=== PATIENT | male | born 1955 | race Caucasian/White ===

== ENCOUNTER 2016-11-21 21:51 | Inpatient (IN) | payer BC, OTHER ==
[~2016-11-21] VITALS: Ht 177.8 cm; Wt 81.7 kg
[~2016-11-21 21:51] MED LIST: DEPO-TESTOSTERONE TOP; MULTTAB58 PO; SILD100T PO; SULF500T36 PO
[2016-11-21] MEDS ORDERED: SODIUM CHLORIDE 0.9% 1000ML 2,000 ML IV STA (22:25)
[2016-11-21] MEDS ORDERED: VANCOMYCIN INJ 1,400 MG in SODIUM CHLORIDE 0.9% 250ML 250 ML IV STA (22:29)
[2016-11-21] MEDS ORDERED: VANCOMYCIN INJ 1,400 MG in SODIUM CHLORIDE 0.9% 500ML 500 ML IV STA (22:29)
[2016-11-21] MEDS ORDERED: CEFEPIME IV 1,000 MG in DEXTROSE 5% 100ML 100 ML IV ONE (22:30)
[2016-11-21] MEDS ORDERED: ACETAMINOPHEN 650 MG SUPP PR STA (22:41)
[2016-11-21] MEDS ORDERED: CHOL1000 PO (22:44)
[2016-11-21] MEDS ORDERED: MULT-618 PO (22:44)
[2016-11-21] MEDS ORDERED: NUTR-7 PO (22:44)
[2016-11-21] MEDS ORDERED: OMEP40CA PO (22:44)
[2016-11-21 22:49] LABS: BASO % 0.2 %; BASO ABS # 0.03 K/uL (0-0.2); COMPLETE YES; EOS % 0.5 %; HEMATOCRIT 53.9 % (42-52); IG% 0.3 %; LYMPH ABS # 3.72 K/uL (1.2-3.4); MEAN CELL VOLUME 91.4 fL (80-100); MEAN CORPUSCULAR HEMOGLOBIN 32.9 pg (25-34); MEAN PLATELET VOLUME 12.2 fL (7.4-10.4); MONO % 15.5 %; NEUT % 56.5 %; PLATELET COUNT 234 K/uL (130-400); WHITE BLOOD COUNT 13.77 K/uL (4.8-10.8)
[2016-11-21 22:56] LABS: BUN/CREATININE RATIO 13.3 (10-20); CALCIUM 10.8 mg/dl (8.5-10.1); CREATININE 3.2 mg/dl (0.60-1.40); MAGNESIUM 1.8 mg/dl (1.8-2.4); POTASSIUM 4.1 mmol/L (3.5-5.1)
--- NOTE | 2016-11-21 22:56 | DIAGNOSTIC IMAGING REPORT ---
SINGLE VIEW CHEST CLINICAL HISTORY: Fever. FINDINGS: An AP, portable, upright chest radiograph is compared to study dated 12/25/12. The examination is degraded by portable technique and patient rotation. The cardiomediastinal silhouette is unremarkable. After carotid calcification is noted in the thoracic aorta. Chronic interstitial thickening is noted. There are streaky bibasilar airspace opacities. No large pleural effusion or pneumothorax is seen. The skeletal structures are osteopenic. The bony thorax is grossly intact. Surgical anchors are present in the right humeral head. IMPRESSION: There are streaky bibasilar airspace opacities. This could represent atelectasis and/or an infectious or inflammatory pneumonitis. Clinical correlation will be required. Electronically signed by: Rashi Sutton M.D. 11/21/2016 10:54 PM Dictated Date/Time: 11/21/2016 10:52 PM
[2016-11-21 22:59] LABS: ACETAMINOPHEN < 2 ug/ml (10-30)
[2016-11-21 23:00] LABS: INR 1.3 (0.9-1.1)
[2016-11-21 23:02] LABS: CKMB/CK RATIO 0.8 (0-3.0)
[2016-11-21] MEDS ORDERED: SODIUM CHLORIDE 0.9% 1000ML 1,000 ML IV STA (23:03)
[2016-11-21 23:06] LABS: ISTAT CREATININE 3.1 mg/dl (0.6-1.3); ISTAT HEMOGLOBIN 19.7 g/dl (14.0-18.0); ISTAT IONIZED CALCIUM 1.21 mmol/l (1.12-1.32)
[2016-11-21 23:24] LABS: MANUAL MICROSCOPIC REQUIRED? YES; REVIEW REQ? NO; URINE APPEARANCE CLOUDY (CLEAR); URINE COLOR YELLOW; URINE NITRITE POS (NEG); URINE SPECIFIC GRAVITY >= 1.030 (1.000-1.030); UROBILINOGEN NEG (NEG)
[2016-11-21 23:26] LABS: VEN BLD GAS O2 SATURATION < 60.0 %; VENOUS BLOOD GAS PCO2 53 mmHg (38.0-50.0); VENOUS BLOOD GAS PO2 18 mmHg
[2016-11-21 23:38] LABS: URINE BILIRUBIN NEG (NEG)
[2016-11-21 23:40] LABS: URINE AMORPHOUS SEDIMENT PRESENT (NONE PRSENT); URINE BACTERIA 3+ (NEG); ZZUR CULT IF INDIC CLEAN CATCH YES
[2016-11-22] VITALS (16 sets, daily range): BP systolic 91–140; BP diastolic 55–74; PULSE 74–108; TEMP 36.5–36.8; O2SAT 94–98; Ht 177.8 cm; Wt 81.7 kg
[2016-11-22] MEDS ORDERED: HYDROCORTISONE SOD SUCCINATE 100 MG/2 ML VIAL IV STA (00:32)
[2016-11-22] MEDS ORDERED: ACETAMINOPHEN 325 MG TAB PO PRN (00:45)
[2016-11-22] MEDS ORDERED: MoRPHine SULFATE 2 MG/ML CARP IV PRN (00:45)
[2016-11-22] MEDS ORDERED: LORAZEPAM 0.5 MG TAB PO PRN (00:45)
--- NOTE | 2016-11-22 00:59 | History and Physical ---
History & Physical Date & Time of Service: Nov 22, 2016 at 00:58 Chief Complaint: Altered Mental Status Primary Care Physician: No Doctor, Assigned History of Present Illness Source: patient 61 y/o M w/Hx esophageal ulcers and possible history of IBD. The pts states that he was asleep on the couch since around 7am and when the family finally tried to wake him, he was lethargic, confused and difficult to arouse. The pt was recently started on a daily PPi for what the family states are esophageal ulcers. He was also started on a low dose of prednisone although it is not known why. He was unable to take either med today. He arrived at the hospital poorly responsive and hypotensive. He had a marginal response to aggressive fluid resuscitation. Initial labs are notable for ARF, leukocytosis and a (+) UA. The pt had a high temp on arrival to the ER. On review of previous records, it appears that in 2012 he presented to the hospital with AMS and hypotension and received a diagnosis of dehydration and adrenal insufficiency, This was thought to be due to abrupt discontinuation of prednisone which he was taking for a GI issue. The pt is not able to contribute to the HPI due to AMS. Past Medical/Surgical History Medical Problems: (1) Benign hypertension Status: Chronic (2) GI bleed Status: Resolved Surgical Problems: (1) H/O heart artery stent Status: Resolved (2) S/P shoulder surgery Status: Resolved Family History Diabetes mellitus FH: heart disease Hypertension Social History Smoking Status: Never Smoker Marital Status: Immunizations History of Influenza Vaccine: No History of Tetanus Vaccine?: No History of Pneumococcal: No History of Hepatitis B Vaccine: No Allergies Coded Allergies: Penicillins (Verified Allergy, Unknown, required hospitalization d/t reaction in childhood, 09/03/14) Home Medications Scheduled Cholecalciferol (Vitamin D3), 1 TAB PO DAILY Multiple Vitamins W/ Minerals (Centrum Silver Ultra Mens), 1 TAB PO DAILY Nutritional Supplements (Boost), 3-4 CAN PO DAILY Omeprazole (Prilosec), 40 MG PO DAILY Review of Systems Cannot obtain - family only reports he was sleeping the whole day Physical Exam Vital Signs Date Time Temp Pulse Resp B/P Pulse Ox O2 Delivery O2 Flow Rate FiO2 11/21/16 23:32 131 20 116/96 96 Nasal Cannula 11/21/16 23:10 136 26 106/52 98 Nasal Cannula 2.0 11/21/16 22:37 38.9 11/21/16 22:17 136 11/21/16 22:08 36.7 139 30 83/53 94 Room Air 11/21/16 22:00 94 Room Air General Appearance: + pertinent finding (Thin , confused, elderly male - no distress) Head: normocephalic, atraumatic Eyes: normal inspection ENT: normal ENT inspection, hearing grossly normal, TMs normal, pharynx normal Neck: supple, no JVD Respiratory/Chest: chest non-tender, lungs clear, normal breath sounds, no respiratory distress, no accessory muscle use, + pertinent finding (Poor effort) Cardiovascular: regular rate, rhythm, no edema, no gallop, no JVD Abdomen/GI: normal bowel sounds, non tender, soft Back: normal inspection, no CVA tenderness Extremities/Musculoskelatal: normal inspection, no calf tenderness, normal capillary refill, no pedal edema, normal range of motion Neurologic/Psych: railroader II-XII nml as tested, no motor/sensory deficits, alert, normal mood/affect, normal reflexes, oriented x 3 Skin: normal color, warm/dry, no rash Diagnostics Laboratory Results Results Past 24 Hours Test 11/21/16 21:11 11/21/16 22:50 11/21/16 22:52 Range/Units White Blood Count 13.77 4.8-10.8 K/uL Red Blood Count 5.90 4.7-6.1 M/uL Hemoglobin 19.4 14.0-18.0 g/dL Hematocrit 53.9 42-52 % Mean Corpuscular Volume 91.4 80-100 fL Mean Corpuscular Hemoglobin 32.9 25-34 pg Mean Corpuscular Hemoglobin Concent 36.0 32-36 g/dl Platelet Count 234 130-400 K/uL Mean Platelet Volume 12.2 7.4-10.4 fL Neutrophils (%) (Auto) 56.5 % Lymphocytes (%) (Auto) 27.0 % Monocytes (%) (Auto) 15.5 % Eosinophils (%) (Auto) 0.5 % Basophils (%) (Auto) 0.2 % Neutrophils # (Auto) 7.78 1.4-6.5 K/uL Lymphocytes # (Auto) 3.72 1.2-3.4 K/uL Monocytes # (Auto) 2.13 0.11-0.59 K/uL Eosinophils # (Auto) 0.07 0-0.5 K/uL Basophils # (Auto) 0.03 0-0.2 K/uL RDW Standard Deviation 42.3 36.4-46.3 fL RDW Coefficient of Variation 12.7 11.5-14.5 % Immature Granulocyte % (Auto) 0.3 % Immature Granulocyte # (Auto) 0.04 0.00-0.02 K/uL Prothrombin Time 14.0 9.0-12.0 SECONDS Prothromb Time International Ratio 1.3 0.9-1.1 Urine Color YELLOW Urine Appearance CLOUDY CLEAR Urine pH 5.0 4.5-7.5 Urine Specific [place] >= 1.030 1.000-1.030 Urine Protein 2+ NEG Urine Glucose (UA) TRACE NEG Urine Ketones TRACE NEG Urine Occult Blood 2+ NEG Urine Nitrite POS NEG Urine Bilirubin NEG NEG Urine Urobilinogen NEG NEG Urine Leukocyte Esterase NEG NEG Urine RBC 10-30 0-4 /hpf Urine WBC 1-5 0-5 /hpf Urine Epithelial Cells 0-5 0-5 /lpf Urine Amorphous Sediment PRESENT NONE PRSENT Urine Bacteria 3+ NEG Sodium Level 139 136-145 mmol/L Potassium Level 4.1 3.5-5.1 mmol/L Chloride Level 104 98-107 mmol/L Carbon Dioxide Level 19 21-32 mmol/L Anion Gap 16.0 20.0 16-25 mmol/L Blood Urea Nitrogen 43 7-18 mg/dl Creatinine 3.20 0.60-1.40 mg/dl Est Creatinine Clear Calc Drug Dose 23.3 ml/min Estimated GFR () 22.8 Estimated GFR (Non- 19.7 BUN/Creatinine Ratio 13.3 10-20 Random Glucose 135 70-99 mg/dl Calcium Level 10.8 8.5-10.1 mg/dl Magnesium Level 1.8 1.8-2.4 mg/dl Total Bilirubin 1.1 0.2-1 mg/dl Direct Bilirubin 0.5 0-0.2 mg/dl Aspartate Amino Transf (AST/SGOT) 44 15-37 U/L Alanine Aminotransferase (ALT/SGPT) 27 12-78 U/L Alkaline Phosphatase 81 45-117 U/L Total Creatine Kinase 306 39-308 U/L Creatine Kinase MB 2.6 0.5-3.6 ng/ml Creatine Kinase MB Ratio 0.8 0-3.0 Troponin I 0.030 0-0.045 ng/ml Total Protein 8.1 6.4-8.2 gm/dl Albumin 3.7 3.4-5.0 gm/dl Salicylates Level < 1.7 2.8-20 mg/dl Acetaminophen Level < 2 10-30 ug/ml Bedside Hemoglobin 19.7 14.0-18.0 g/dl Bedside Hematocrit 58 42-52 % Bedside Sodium 141 135-144 mEq/L Bedside Potassium 4.4 3.3-5.0 mEq/L Bedside Chloride 106 101-112 mEq/L Bedside Total CO2 20 24-31 mEq/l Bedside Blood Urea Nitrogen 44 7-18 mg/dl Bedside Creatinine 3.1 0.6-1.3 mg/dl Bedside Glucose (other) 146 70-99 mg/dl Bedside Ionized Calcium (Nora) 1.21 1.12-1.32 mmol/l Venous Blood pH 7.26 7.36-7.41 Venous Blood Partial Pressure CO2 53 38.0-50.0 mmHg Venous Blood Partial Pressure O2 18 mmHg Venous Blood HCO3 23 mmol/L Venous Blood Oxygen Saturation < 60.0 % Venous Blood Base Excess -5.0 mmol/L Ammonia 20.0 11-32 umol/L Microbiology Results 11/21/16 Blood Culture, Received Pending 11/21/16 Blood Culture, Received Pending 11/21/16 Urine Culture, Received Pending Diagnostic Radiology NO acute findings on abdominal CT Impression Assessment and Plan 61 y/o M w/Hx esophageal ulcers and possible history of IBD. The pts states that he was asleep on the couch since around 7am and when the family finally tried to wake him, he was lethargic, confused and difficult to arouse. The pt was recently started on a daily PPi for what the family states are esophageal ulcers. He was also started on a low dose of prednisone although it is not known why. He was unable to take either med today. He arrived at the hospital poorly responsive and hypotensive. He had a marginal response to aggressive fluid resuscitation. Initial labs are notable for ARF, leukocytosis and a (+) UA. On review of previous records, it appears that in 2012 he presented to the hospital with AMS and hypotension and received a diagnosis of dehydration and adrenal insufficiency, This was thought to be due to abrupt discontinuation of prednisone which he was taking for a GI issue. 1) Fever , hypotension - presumed urosepsis - Pt started on Cefepime pending culture results - pressure has responded to IVF however he will be monitored in the ICU overnight 2) Hypotension - as per previous admissions this may be multifactorial related to infection and adrenal insufficiency or relative insufficiency. His prednisone Rx appears to be for only 0.5mg daily and his compliance may be variable as his states he feels the medication makes him sick. We have requested a random cortisol and will start Hydrocortisone 100mg TID. Why he is taking prednisone should be addressed with his MD at the [facility] in the AM. 3) Esophageal ulcers - will provide daily IV protonix 4) ARF - this had occurred previously when he was admitted with hypotension - urine lytes obtained - aggressive hydration - recheck BMP AM - labs are consistent with severe dehydration 5) Pts presentation is unusual for his age and baseline which his family states is AAOx3 and without medical issues. It is noted however that he takes boost and MVIs daily and it does not appear that the family have a clear understanding of any underlying issues. It will again be necessary to clarify with hos primary when possible. Total time for this admit including med rec - review of records, imaging, labs - discussion with pt/patsy - ER attending - critical care time 54 min Full code - Heparin prophylaxis Level of Care Critical Care Resuscitation Status FULL RESUSCITATION VTE Prophylaxis VTE Risk Assessment Done? Y/N: Yes Risk Level: Moderate Given or contraindicated: Unfractionated heparin SQ
[2016-11-22] MEDS ORDERED: CEFEPIME CONSULT ACTIVE PRN ×2 (02:15)
[2016-11-22] MEDS: SODIUM CHLORIDE 0.9% 1000ML 1,000 ML IV SCH ×3 (02:18→18:08)
--- NOTE | 2016-11-22 02:23 | EMERGENCY ROOM VISIT NOTE ---
History Report prepared by Sparkle: Jono Robison Under the Supervision of: Dr. Daniel Baeza D.O. First contact with patient: 22:10 Chief Complaint: ALTERED MENTAL STATUS Stated Complaint: ALTERED MENTAL STATUS History of Present Illness The patient is a 61 year old male who presents to the Emergency Room with complaints of altered mental status. As per family, the patient lives in the downstairs of the mother's home. She states she went downstairs in the morning around 7:30 AM and saw him sleeping on the couch. The mother notes when she went downstairs twelve hours later, he had not moved and was in the same position and was unresponsive. The son states he saw the patient today, as well and did not bother the patient, because it appeared the patient was asleep on the couch. He notes the area smelled like diarrhea, but he did not visualize any. The mother notes this is not uncommon, because he has not been able to eat well due to a strict diet for his ulcerated esophagus. She states the patient was on medication for it, but the dosage was cut in half. The family denies the patient being an alcoholic or complaining of recent cough, runny nose, or infection. They note a history of cardiac stents and a GI bleed. The family denies the patient having a psychiatric history or trying to hurt himself in the past. The history is limited secondary to the patient's altered mental status. Source of History: family History Limited By: AMS Onset: just prior to arrival Position: other (global) Quality: other (AMS) Timing: other (sudden) Note: Associated symptoms: unresponsiveness. Review of Systems The HPI and ROS are limited secondary to the patient's altered mental status. Past Medical & Surgical Medical Problems: (1) Benign hypertension (2) GI bleed (3) Sepsis (4) UTI (urinary tract infection) Surgical Problems: (1) H/O heart artery stent (2) S/P shoulder surgery Family History Diabetes mellitus FH: heart disease Hypertension Social History Smoking Status: Never Smoker Alcohol Use: occasionally Marital Status: Housing Status: lives with family Current/Historical Medications Scheduled Cholecalciferol (Vitamin D3), 1 TAB PO DAILY Multiple Vitamins W/ Minerals (Centrum Silver Ultra Mens), 1 TAB PO DAILY Nutritional Supplements (Boost), 3-4 CAN PO DAILY Omeprazole (Prilosec), 40 MG PO DAILY Allergies Coded Allergies: Penicillins (Verified Allergy, Unknown, required hospitalization d/t reaction in childhood, 09/03/14) Physical Exam Vital Signs Date Time Temp Pulse Resp B/P Pulse Ox O2 Delivery O2 Flow Rate FiO2 11/21/16 23:32 131 20 116/96 96 Nasal Cannula 11/21/16 23:10 136 26 106/52 98 Nasal Cannula 2.0 11/21/16 22:37 38.9 11/21/16 22:17 136 11/21/16 22:08 36.7 139 30 83/53 94 Room Air 11/21/16 22:00 94 Room Air Physical Exam GENERAL: disheveled, ill-appearing, not responding to commands EYE EXAM: normal conjunctiva OROPHARYNX: no exudate, no erythema, lips, buccal mucosa, and tongue normal and mucous membranes are dry NECK: supple, no nuchal rigidity, no adenopathy, non-tender LUNGS: Clear to auscultation. Normal chest wall mechanics HEART: Tachycardic, no murmurs, S1 normal and S2 normal ABDOMEN: abdomen soft, non-tender, normo-active bowel sounds, no masses, no rebound or guarding. BACK: Back is symmetrical on inspection and there is no deformity, no midline tenderness, no CVA tenderness. SKIN: no rashes and no bruising UPPER EXTREMITIES: upper extremities are grossly normal. LOWER EXTREMITIES: No pitting edema. NEURO EXAM: Intermittent moaning, not responsive or following commands. Non- focal. Moving all extremities. Rectal: Heme negative Medical Decision & Procedures ER Provider Diagnostic Interpretation: Xray results per the radiologist and my interpretation. Other results have been interpreted by the radiologist and reviewed by me. SINGLE VIEW CHEST CLINICAL HISTORY: Fever. FINDINGS: An AP, portable, upright chest radiograph is compared to study dated 12/25/12. The examination is degraded by portable technique and patient rotation. The cardiomediastinal silhouette is unremarkable. After carotid calcification is noted in the thoracic aorta. Chronic interstitial thickening is noted. There are streaky bibasilar airspace opacities. No large pleural effusion or pneumothorax is seen. The skeletal structures are osteopenic. The bony thorax is grossly intact. Surgical anchors are present in the right humeral head. IMPRESSION: There are streaky bibasilar airspace opacities. This could represent atelectasis and/or an infectious or inflammatory pneumonitis. Clinical correlation will be required. Electronically signed by: Rashi Sutton M.D. 11/21/2016 10:[address] ABDOMEN & PELVIS: Compared to 12/25/12 Diverticulosis cli without diverticulitis. Normal appendix. No GI or urinary tract obstruction. Trace gas in the urinary bladder may reflect instrumentation or cystitis. Radiologist: Jeremias Anne M.D. Study ready at 23:29 and initial results transmitted at 23:45 CT HEAD: No acute intracranial process. Mild involutional changes Radiologist: Jeremias Anne M.D. Study ready at 23: 25 and initial results transmitted at 23:47 Laboratory Results 11/21/16 21:11 Red Blood Count 5.90, Mean Corpuscular Volume 91.4, Mean Corpuscular Hemoglobin 32.9, Mean Corpuscular Hemoglobin Concent 36.0, Mean Platelet Volume 12.2, Neutrophils (%) (Auto) 56.5, Lymphocytes (%) (Auto) 27.0, Monocytes (%) (Auto) 15.5, Eosinophils (%) (Auto) 0.5, Basophils (%) (Auto) 0.2, Neutrophils # (Auto ) 7.78, Lymphocytes # (Auto) 3.72, Monocytes # (Auto) 2.13, Eosinophils # (Auto ) 0.07, Basophils # (Auto) 0.03 Test 11/21/16 21:11 11/21/16 22:50 11/21/16 22:52 11/21/16 22:56 White Blood Count 13.77 K/uL (4.8-10.8) Red Blood Count 5.90 M/uL (4.7-6.1) Hemoglobin 19.4 g/dL (14.0-18.0) Hematocrit 53.9 % (42-52) Mean Corpuscular Volume 91.4 fL (80-100) Mean Corpuscular Hemoglobin 32.9 pg (25-34) Mean Corpuscular Hemoglobin Concent 36.0 g/dl (32-36) Platelet Count 234 K/uL (130-400) Mean Platelet Volume 12.2 fL (7.4-10.4) Neutrophils (%) (Auto) 56.5 % Lymphocytes (%) (Auto) 27.0 % Monocytes (%) (Auto) 15.5 % Eosinophils (%) (Auto) 0.5 % Basophils (%) (Auto) 0.2 % Neutrophils # (Auto) 7.78 K/uL (1.4-6.5) Lymphocytes # (Auto) 3.72 K/uL (1.2-3.4) Monocytes # (Auto) 2.13 K/uL (0.11-0.59) Eosinophils # (Auto) 0.07 K/uL (0-0.5) Basophils # (Auto) 0.03 K/uL (0-0.2) RDW Standard Deviation 42.3 fL (36.4-46.3) RDW Coefficient of Variation 12.7 % (11.5-14.5) Immature Granulocyte % (Auto) 0.3 % Immature Granulocyte # (Auto) 0.04 K/uL (0.00-0.02) Prothrombin Time 14.0 SECONDS (9.0-12.0) Prothromb Time International Ratio 1.3 (0.9-1.1) Urine Color YELLOW Urine Appearance CLOUDY (CLEAR) Urine pH 5.0 (4.5-7.5) Urine Specific [place] >= 1.030 (1.000-1.030) Urine Protein 2+ (NEG) Urine Glucose (UA) TRACE (NEG) Urine Ketones TRACE (NEG) Urine Occult Blood 2+ (NEG) Urine Nitrite POS (NEG) Urine Bilirubin NEG (NEG) Urine Urobilinogen NEG (NEG) Urine Leukocyte Esterase NEG (NEG) Urine RBC 10-30 /hpf (0-4) Urine WBC 1-5 /hpf (0-5) Urine Epithelial Cells 0-5 /lpf (0-5) Urine Amorphous Sediment PRESENT (NONE PRSENT) Urine Bacteria 3+ (NEG) Magnesium Level 1.8 mg/dl (1.8-2.4) Total Bilirubin 1.1 mg/dl (0.2-1) Direct Bilirubin 0.5 mg/dl (0-0.2) Aspartate Amino Transf (AST/SGOT) 44 U/L (15-37) Alanine Aminotransferase (ALT/SGPT) 27 U/L (12-78) Alkaline Phosphatase 81 U/L (45-117) Total Creatine Kinase 306 U/L (39-308) Creatine Kinase MB 2.6 ng/ml (0.5-3.6) Creatine Kinase MB Ratio 0.8 (0-3.0) Total Protein 8.1 gm/dl (6.4-8.2) Albumin 3.7 gm/dl (3.4-5.0) Random Cortisol 10.92 mcg/dl Salicylates Level < 1.7 mg/dl (2.8-20) Acetaminophen Level < 2 ug/ml (10-30) Bedside Hemoglobin 19.7 g/dl (14.0-18.0) Bedside Hematocrit 58 % (42-52) Bedside Sodium 141 mEq/L (135-144) Bedside Potassium 4.4 mEq/L (3.3-5.0) Bedside Chloride 106 mEq/L (101-112) Bedside Total CO2 20 mEq/l (24-31) Bedside Blood Urea Nitrogen 44 mg/dl (7-18) Bedside Creatinine 3.1 mg/dl (0.6-1.3) Bedside Glucose (other) 146 mg/dl (70-99) Bedside Ionized Calcium (Nora) 1.21 mmol/l (1.12-1.32) Venous Blood pH 7.26 (7.36-7.41) Venous Blood Partial Pressure CO2 53 mmHg (38.0-50.0) Venous Blood Partial Pressure O2 18 mmHg Venous Blood HCO3 23 mmol/L Venous Blood Oxygen Saturation < 60.0 % Venous Blood Base Excess -5.0 mmol/L Ammonia 20.0 umol/L (11-32) Bedside Lactic Acid Venous 6.07 mmol/L (0.90-1.70) Test 11/22/16 00:00 Urine Random Creatinine 120.0 mg/dl Urine Random Sodium 56 mEq/L Laboratory results per my review. Medications Administered Medications (Trade) Dose Ordered Sig/Rhea Route Start Time Stop Time Status Last Admin Dose Admin Sodium Chloride 2,000 ml @ 999 mls/hr Q2H1M STAT IV 11/21/16 22:25 11/22/16 00:25 DC 11/21/16 22:25 999 MLS/HR Cefepime HCl 1000 mg/Dextrose 111.3 ml @ 200 mls/hr NOW ONCE IV 11/21/16 22:30 11/22/16 09:30 DC 11/21/16 22:56 200 MLS/HR Vancomycin HCl/ Sodium Chloride (Vancomycin Inj/ Nss 500ml) 528 ml @ 200 mls/hr NOW STAT IV 11/21/16 22:29 11/22/16 01:07 DC 11/21/16 22:57 200 MLS/HR Acetaminophen 650 mg 650 mg NOW STAT ID 11/21/16 22:41 11/21/16 22:42 DC 11/21/16 22:59 650 MG Sodium Chloride (Nss 1000ml) 1,000 ml @ 999 mls/hr Q1H1M STAT IV 11/21/16 23:03 11/22/16 00:03 DC 11/21/16 23:18 999 MLS/HR Hydrocortisone Sodium Succinate (Solu-Cortef IV) 100 mg NOW STAT IV 11/22/16 00:32 11/22/16 00:37 DC 11/22/16 01:00 100 MG ECG Indication: altered mental status Rate (beats per minute): 138 Rhythm: sinus tachycardia Findings: other (Poor baseline in lateral. Right axis deviation.) ED Course ED COURSE: Vital signs were reviewed and showed hypotension, tachycardia, and febrile. The patients medical record was reviewed The above diagnostic studies were performed and reviewed. ED treatments and interventions as stated above. 2212: The patient was evaluated in room B10. A complete history and physical examination was performed. 2225: Ordered Sodium Chloride 2,000 ml @ 999 mls/hr IV. 2229: Ordered Vancomycin HCl 1,400 mg/Sodium Chloride 528 ml @ 200 mls/hr IV. 2230: Ordered Cefepime HCl 1,000 mg/Dextrose 111.3 ml @ 200 mls/hr IV. 2241: Ordered Tylenol Supp 650 mg ID. 2302: It is noted the patient blood pressure improved from 80 to the low 100s, and the heart rates is still in the 130s. 2303: Ordered Sodium Chloride 1,000 ml @ 999 mls/hr IV. 0007: I spoke to MAURILIO Quintero (Hospitalist) about the patient's case, and he will follow the patient for further evaluation. 0010: Repeat neuro exam, the patient is alert, oriented to person, place, and the family members in the room. Non-focal. Patient complains of weakness. 0032: Ordered Solu-Cortef IV 100 mg IV. 0045: Upon reevaluation, the patient is doing well.I discussed my findings with the patient and he understands and agrees with the treatment plan. Based on the patients age, coexisting illnesses, exam and lab findings the decision to treat as an inpatient was made. The patient remained stable while under my care. The patient will be evaluated for further management. 0600: Ordered Levofloxacin 500 mg IV. Medical Decision Differential diagnosis includes etiologies such as sepsis, UTI, pneumonia, metabolic, electrolyte abnormalities, cardiac sources, intracerebral event, toxicologic, neurologic, as well as others were entertained. Patient is a 61-year-old male who presents the ER with family for altered mental status. Patient has been lying on the Since 7:30 this morning and did not move or talk to anybody. Upon presentation to the ER patient is lying in bed intermittent moaning not following commands. Vitals show systolic blood pressure of 80 with a heart rate in the 130s and a temperature of 39C. General and does appear to be septic. FAST was performed a bedside and showed no intra-abdominal free fluid and no pericardial effusion. 2 large-bore IVs were immediately obtained. He was given 3 L normal saline. Along with cefepime and vancomycin. Labs show a leukocytosis of 14,000. Hemoglobin is 19, 000 suggesting dehydration which is support by his exam. There is a mild anion gap. He does have acute renal failure with a creatinine of 3.2. Total and direct bilirubin are only slightly elevated. AST and ALTs are unremarkable. Troponin is at low but positive. Total CK is only 300. UA does have nitrates + 3 bacteria without white cells. Salicylates and acetaminophen is negative. INR is 1.3. VBG shows a pH is 7.26 with a CO2 of 53. Chest x-ray shows slight bilateral lower lobe opacities. CT head was negative. CT of abdomen and pelvis is unremarkable as well. His mentation improved significantly following fluids and antibiotics. He was able to state person place and name. He is able to identify the family members in the room. He is able to perform a neuro exam which was nonfocal. I do not believe that this discharged. I do favor this is secondary to sepsis which is responsive to aggressive fluid hydration. He is also given 100 mg of hydrocortisone as he has a history of adrenal insufficiency upon previous admission. Following 3 L normal saline his systolic blood pressures improved into the 1 teens. Patient family were updated at bedside. He is admitted to internal medicine with sepsis of pneumonias versus UTI. Consults Time Called: [phone] Consulting Physician: MAURILIO Quintero (Hospitalist) Returned Call: [phone] I spoke to MAURILIO Quintero (Hospitalist) about the patient's case, and he will follow the patient for further evaluation. Impression Primary Impression: Sepsis Additional Impressions: Acute kidney injury Metabolic acidosis Leukocytosis Altered mental status I have personally spent 50 minutes of critical care time in the direct management of this patient. This includes bedside care, interpretation of diagnostic studies, and testing, discussion with consultants, patient, and family members, and other required patient management activities. This 50 minutes is in excess of all separately billable procedures. Scribe Attestation The scribe's documentation has been prepared under my direction and personally reviewed by me in its entirety. I confirm that the note above accurately reflects all work, treatment, procedures, and medical decision making performed by me. Departure Information Dispostion Being Evaluated By Hospitalist (MAURILIO Quintero (Hospitalist)) Referrals Seamus Campa M.D. (PCP) Problem Qualifiers Primary Impression: Sepsis Sepsis type: sepsis due to unspecified organism Qualified Codes: A41.9 - Sepsis, unspecified organism Additional Impressions: Leukocytosis Leukocytosis type: unspecified Qualified Codes: D72.829 - Elevated white blood cell count, unspecified Altered mental status Altered mental status type: unspecified Qualified Codes: R41.82 - Altered mental status, unspecified
[2016-11-22] MEDS ORDERED: LEVAQUIN 500MG / 100ML D5W IV ONE (06:00)
[2016-11-22] MEDS: HEPARIN SOD 5000 UNIT/0.5 ML CARP SQ SCH ×3 (06:03→23:32)
--- NOTE | 2016-11-22 06:39 | DIAGNOSTIC IMAGING REPORT ---
CT OF THE HEAD WITHOUT CONTRAST CLINICAL HISTORY: Altered mental status. COMPARISON STUDY: No previous studies for comparison. TECHNIQUE: Helical axial images of the head were obtained without IV contrast. Automated exposure control was utilized for the study. FINDINGS: No acute intracranial hemorrhage, midline shift or mass effect is present. Brain volume is normal for age. Ventricular system is normal. The basilar cisterns are patent. No extra-axial collections are present. Mild white matter hypodensity suggests small vessel disease. There are no findings to suggest acute dural sinus thrombosis or acute territorial infarct. There is no calvarial fracture. There may be a small amount of fluid within the left mastoid air cells. Sinuses are clear. IMPRESSION: No acute intracranial findings. Electronically signed by: Kumar Bell M.D. 11/22/2016 6:38 AM Dictated Date/Time: 11/22/2016 6:36 AM
--- NOTE | 2016-11-22 07:08 | DIAGNOSTIC IMAGING REPORT ---
CT SCAN OF THE ABDOMEN AND PELVIS WITHOUT CONTRAST CLINICAL HISTORY: sepsis COMPARISON STUDY: 12/25/2012 TECHNIQUE: CT scan of the abdomen and pelvis was performed from the lung bases to the proximal femurs. Images are reviewed in the axial, sagittal, and coronal planes. IV contrast was not administered for this examination. CT DOSE: 1220.00 mGy.cm FINDINGS: Lower chest: There are calcified right hilar lymph nodes. There is mild thickening of interlobular septa. There is a calcified right lower lobe granuloma Liver: No focal hepatic masses are visualized in this noncontrast study. Gallbladder: Unremarkable. Spleen: Normal in size and attenuation. Pancreas: Unremarkable. Adrenal glands: Unremarkable. Kidneys: No renal, ureteral, or bladder calculi are visualized. Bowel: There are no transition zones indicate bowel obstruction. There are scattered colonic diverticula present. There is no acute diverticulitis. The appendix is mildly dilated measuring 8 mm. This however remains unchanged from the prior study. There are no periappendiceal inflammatory changes. Peritoneum: There is no intraperitoneal free air or abdominal ascites. Vasculature: The abdominal aorta is normal in course and caliber. Adenopathy: None. Pelvic viscera: The bladder, and pelvic viscera are unremarkable. Postsurgical changes are present in the region of the ankle canals. There is a small amount of fluid within the right inguinal canal. There is a droplet of air within the bladder, likely iatrogenic. Skeletal structures: No destructive osseous lesions are seen. IMPRESSION: 1. No evidence of bowel obstruction. No evidence of free air 2. Small hiatal hernia 3. No evidence of acute diverticulitis 4. Mildly dilated appendix, but no evidence of periappendiceal inflammatory change. As the appendiceal diameter remains unchanged from the prior study, the study is felt to be negative for acute appendicitis Electronically signed by: Frederick Rg M.D. 11/22/2016 7:07 AM Dictated Date/Time: 11/22/2016 7:02 AM
[2016-11-22] MEDS: HYDROCORTISONE IV 100 MG in SYRINGE 0 ML IV SCH ×3 (07:51→23:33)
[2016-11-22] MEDS ORDERED: INFLUENZA ADMINISTRATION CHARGE ONE (08:00)
[2016-11-22] MEDS ORDERED: INFLUENZA VIRUS QUAD VACCINE 0.5 ML SYR IM. ONE (08:00)
--- NOTE | 2016-11-22 09:38 | Progress Note ---
Subjective Date of Service: Nov 22, 2016. Subjective Pt evaluation today including: conversation w/ patient, physical exam, chart review, lab review, review of studies Problem List Medical Problems: (1) Acute kidney injury Status: Acute (2) Altered mental status Status: Acute (3) Leukocytosis Status: Acute (4) Metabolic acidosis Status: Acute Review of Systems Constitutional: + fever Eyes: No worsening of vision ENT: No hearing loss Respiratory: No cough, No shortness of breath, No sputum Cardiac: No chest pain, No edema, No orthopnea Abdomen: No diarrhea, No nausea, No pain, No vomiting Musculoskeletal: No joint pain, No muscle pain Male : No dysuria, No urinary frequency Neurologic: No memory loss, No numbness/tingling, No weakness Psychiatric: No anhedonism, No depression symptoms Heme: No abnormal bleeding/bruising Endo: No fatigue Skin: No rash Medications Current Inpatient Medications Medications (Trade) Dose Ordered Sig/Rhea Route Start Time Stop Time Status Last Admin Dose Admin Cefepime HCl 1000 mg/Dextrose 111.3 ml @ 200 mls/hr Q24H IV 11/22/16 23:00 12/01/16 22:59 Sodium Chloride (Nss 1000ml) 1,000 ml @ 125 mls/hr Q8H IV 11/22/16 02:00 11/23/16 01:59 11/22/16 07:51 125 MLS/HR Heparin Sodium (Porcine) (Heparin Sq 5000 Unit/0.5ml) 5,000 unit Q8H SQ 11/22/16 06:00 12/22/16 05:59 11/22/16 06:03 5,000 UNIT Acetaminophen (Tylenol Tab) 650 mg Q4H PRN PO 11/22/16 00:45 12/22/16 00:44 Lorazepam (Ativan Tab) 0.5 mg Q4H PRN PO 11/22/16 00:45 12/22/16 00:44 Morphine Sulfate 2 mg 2 mg Q2H PRN IV 11/22/16 00:45 12/06/16 00:44 Hydrocortisone Sodium Succinate 100 mg/Syringe 2 ml @ 4 mls/min Q8H IV 11/22/16 08:00 12/22/16 07:59 11/22/16 07:51 4 MLS/MIN Pantoprazole Sodium/Syringe (Protonix Inj/ Syringe) 10 ml @ 5 mls/min DAILY@11 IV 11/22/16 11:00 12/22/16 10:59 Cefepime HCl (Consult) 1 ea UD PRN N/A 11/22/16 02:15 12/22/16 02:14 Objective Vital Signs Date Time Temp Pulse Resp B/P Pulse Ox O2 Delivery O2 Flow Rate FiO2 11/22/16 08:00 36.7 79 18 106/64 97 Nasal Cannula 2.0 11/22/16 08:00 Nasal Cannula 2.0 11/22/16 05:59 96 18 119/61 96 11/22/16 04:28 97 111/60 97 11/22/16 04:00 36.6 99 20 95/56 96 11/22/16 04:00 99 96 11/22/16 04:00 95 Nasal Cannula 3.0 11/22/16 03:59 101 95/56 97 11/22/16 03:40 102 111/66 98 11/22/16 03:28 108 140/68 97 11/22/16 03:00 106 96 11/22/16 02:46 36.8 104 18 105/58 97 Nasal Cannula 3.0 11/22/16 01:18 37.3 129 22 114/52 96 11/21/16 23:32 131 20 116/96 96 Nasal Cannula 11/21/16 23:10 136 26 106/52 98 Nasal Cannula 2.0 11/21/16 22:37 38.9 11/21/16 22:17 136 11/21/16 22:08 36.7 139 30 83/53 94 Room Air 11/21/16 22:00 94 Room Air Physical Exam General Appearance: no apparent distress Eyes: normal inspection, PERRL, EOMI ENT: normal ENT inspection, hearing grossly normal, TMs normal, pharynx normal Neck: supple Respiratory/Chest: chest non-tender, lungs clear, normal breath sounds, no respiratory distress, no accessory muscle use Cardiovascular: regular rate, rhythm, no edema, no gallop, no JVD, no murmur Abdomen: normal bowel sounds, non tender, soft, no organomegaly, no pulsatile mass Extremities: normal range of motion, non-tender, normal inspection, no pedal edema 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, no motor/sensory deficits, alert, normal mood/affect, oriented x 3 Skin: normal color, warm/dry, no rash Laboratory Results Last 24 Hours Test 11/21/16 21:11 11/21/16 22:50 11/21/16 22:52 11/21/16 22:56 White Blood Count 13.77 K/uL Red Blood Count 5.90 M/uL Hemoglobin 19.4 g/dL Hematocrit 53.9 % Mean Corpuscular Volume 91.4 fL Mean Corpuscular Hemoglobin 32.9 pg Mean Corpuscular Hemoglobin Concent 36.0 g/dl Platelet Count 234 K/uL Mean Platelet Volume 12.2 fL Neutrophils (%) (Auto) 56.5 % Lymphocytes (%) (Auto) 27.0 % Monocytes (%) (Auto) 15.5 % Eosinophils (%) (Auto) 0.5 % Basophils (%) (Auto) 0.2 % Neutrophils # (Auto) 7.78 K/uL Lymphocytes # (Auto) 3.72 K/uL Monocytes # (Auto) 2.13 K/uL Eosinophils # (Auto) 0.07 K/uL Basophils # (Auto) 0.03 K/uL RDW Standard Deviation 42.3 fL RDW Coefficient of Variation 12.7 % Immature Granulocyte % (Auto) 0.3 % Immature Granulocyte # (Auto) 0.04 K/uL Prothrombin Time 14.0 SECONDS Prothromb Time International Ratio 1.3 Urine Color YELLOW Urine Appearance CLOUDY Urine pH 5.0 Urine Specific [place] >= 1.030 Urine Protein 2+ Urine Glucose (UA) TRACE Urine Ketones TRACE Urine Occult Blood 2+ Urine Nitrite POS Urine Bilirubin NEG Urine Urobilinogen NEG Urine Leukocyte Esterase NEG Urine RBC 10-30 /hpf Urine WBC 1-5 /hpf Urine Epithelial Cells 0-5 /lpf Urine Amorphous Sediment PRESENT Urine Bacteria 3+ Sodium Level 139 mmol/L Potassium Level 4.1 mmol/L Chloride Level 104 mmol/L Carbon Dioxide Level 19 mmol/L Anion Gap 16.0 mmol/L 20.0 mmol/L Blood Urea Nitrogen 43 mg/dl Creatinine 3.20 mg/dl Est Creatinine Clear Calc Drug Dose 23.3 ml/min Estimated GFR () 22.8 Estimated GFR (Non- 19.7 BUN/Creatinine Ratio 13.3 Random Glucose 135 mg/dl Calcium Level 10.8 mg/dl Magnesium Level 1.8 mg/dl Total Bilirubin 1.1 mg/dl Direct Bilirubin 0.5 mg/dl Aspartate Amino Transf (AST/SGOT) 44 U/L Alanine Aminotransferase (ALT/SGPT) 27 U/L Alkaline Phosphatase 81 U/L Total Creatine Kinase 306 U/L Creatine Kinase MB 2.6 ng/ml Creatine Kinase MB Ratio 0.8 Troponin I 0.030 ng/ml Total Protein 8.1 gm/dl Albumin 3.7 gm/dl Random Cortisol 10.92 mcg/dl Salicylates Level < 1.7 mg/dl Acetaminophen Level < 2 ug/ml Bedside Hemoglobin 19.7 g/dl Bedside Hematocrit 58 % Bedside Sodium 141 mEq/L Bedside Potassium 4.4 mEq/L Bedside Chloride 106 mEq/L Bedside Total CO2 20 mEq/l Bedside Blood Urea Nitrogen 44 mg/dl Bedside Creatinine 3.1 mg/dl Bedside Glucose (other) 146 mg/dl Bedside Ionized Calcium (Nora) 1.21 mmol/l Venous Blood pH 7.26 Venous Blood Partial Pressure CO2 53 mmHg Venous Blood Partial Pressure O2 18 mmHg Venous Blood HCO3 23 mmol/L Venous Blood Oxygen Saturation < 60.0 % Venous Blood Base Excess -5.0 mmol/L Ammonia 20.0 umol/L Bedside Lactic Acid Venous 6.07 mmol/L Test 11/22/16 07:06 Thyroid Stimulating Hormone (TSH) 1.580 uIu/ml Assessment and Plan 61 y/o M w/Hx esophageal ulcers and possible history of IBD, Hx of adrenal insufficiency. recently discontinued steroids ? possibly taking it for IBD, presented with lethargy and hypotension. Acute renal insufficiency 1) Fever , hypotension - I suspect it is secondary to adrenal insufficiency giving his rapid response to steroids/IVF possible urosepsis - Pt started on Cefepime pending culture results -transfer out of ICU to telemetry 2) Hypotension - as per previous admissions this may be multifactorial related to infection and adrenal insufficiency or relative insufficiency and dehydration . His prednisone Rx appears to be for only 0.5mg daily and his compliance may be variable as his states he feels the medication makes him sick. awaiting random cortisol continue Hydrocortisone 100mg TID. Why he is taking prednisone should be addressed with his MD at the [place] [facility] in the AM. 3) Esophageal ulcers - will provide daily IV protonix 4) ARF - this had occurred previously when he was admitted with hypotension - urine lytes obtained - aggressive hydration - recheck BMP AM - labs are consistent with severe dehydration, order renal US [facility], confirmed that he is supposed to be on prednisone 0.5mg po daily, Triage nurse did not find out the reason in his Hx, will try to reach out for his PCP
[2016-11-22 10:39] LABS: CALCIUM 8.7 mg/dl (8.5-10.1); CREATININE 1.9 mg/dl (0.60-1.40)
[2016-11-22] MEDS ORDERED: PANTOprazole INJ 40 MG in SYRINGE 0 ML IV SCH (11:00)
[2016-11-22] MEDS ORDERED: NURSING VERBAL MED ORDER ONE (11:15)
[2016-11-22] MEDS: BOOST VANILLA PO SCH ×4 (11:30→17:02)
[2016-11-22] MEDS: PANTOprazole SOD 40 MG TAB PO SCH (12:14)
[2016-11-22 13:36] LABS: INFLUENZA A PCR Neg for Influ A (NEG); INFLUENZA B PCR Neg for Influ B (NEG)
--- NOTE | 2016-11-22 13:40 | Critical Care Consultation ---
Critical Care Consultation Date of Consultation: Nov 22, 2016. Attending Physician: Bryan Colon MD Reason for Consultation: ALOC History of Present Illness This is a 61 yo m that is presenting to us with ALOC. When discussing the history with the patient he is alert and oriented at this point but is completely unaware of the events that brought him into the hospital.He also has some confusion about his PMHx but states "im still a little fuzzy, ask me again later." He notes that since Nov 05 he has had worsening appetite and fatigue. According to a chart review the patient went down to his basement to take a nap. After 12 hours the patient was checked on by his mother and he was supposedly unresponsive. She then called EMS and he was brought to the ED. In the ED he was tachycardic, hypotensive and have a fever. Cefepime was initiated as well as fluids which he responded to. Decision was made at that point to admit him to ICU for sepsis. He does have a h/o of esophageal ulcer which he takes prilosec for. He also apparently has a h/o abdominal pain and poor appetite that when these "episodes " occurs he takes a short course of low dose prednisone. This abdominal pain has been evaluated in the outpt setting and no etiology has been found. He states that he currently does not have any abdominal pain and feels his appetite and fatigue is improving. Past Medical/Surgical History Esophageal Ulcers Family History Diabetes mellitus FH: heart disease Hypertension Social History Smoking Status: Former Smoker (quit 10 years prior) Smokeless Tobacco Use: Yes (daily) Alcohol Use: occasionally Drug Use: none Marital Status: Housing Status: lives with family Allergies Coded Allergies: Penicillins (Verified Allergy, Unknown, required hospitalization d/t reaction in childhood, 09/03/14) Home Medications Scheduled Cholecalciferol (Vitamin D3), 1 TAB PO DAILY Multiple Vitamins W/ Minerals (Centrum Silver Ultra Mens), 1 TAB PO DAILY Nutritional Supplements (Boost), 3-4 CAN PO DAILY Omeprazole (Prilosec), 40 MG PO DAILY Current Inpatient Medications Current Inpatient Medications Medications (Trade) Dose Ordered Sig/Rhea Route Start Time Stop Time Status Last Admin Dose Admin Sodium Chloride (Nss 1000ml) 1,000 ml @ 125 mls/hr Q8H IV 11/22/16 02:00 11/23/16 01:59 11/22/16 07:51 125 MLS/HR Heparin Sodium (Porcine) (Heparin Sq 5000 Unit/0.5ml) 5,000 unit Q8H SQ 11/22/16 06:00 12/22/16 05:59 11/22/16 06:03 5,000 UNIT Acetaminophen (Tylenol Tab) 650 mg Q4H PRN PO 11/22/16 00:45 12/22/16 00:44 Lorazepam (Ativan Tab) 0.5 mg Q4H PRN PO 11/22/16 00:45 12/22/16 00:44 Morphine Sulfate 2 mg 2 mg Q2H PRN IV 11/22/16 00:45 12/06/16 00:44 Hydrocortisone Sodium Succinate/ Syringe (Solu-Cortef IV/ Syringe) 2 ml @ 4 mls/min Q8H IV 11/22/16 08:00 12/22/16 07:59 11/22/16 07:51 4 MLS/MIN Pantoprazole Sodium 40 mg 40 mg QAM PO 11/22/16 11:00 12/22/16 10:59 Ceftriaxone Sodium/Dextrose (Rocephin Inj/ Dextrose Add-[place] 50ML) 50 ml @ 100 mls/hr Q24H IV 11/22/16 21:00 12/02/16 20:59 Enteral Nutritional Formula (Boost) 1 can TIDM PO 11/22/16 11:30 12/22/16 11:29 Review of Systems Constitutional: No fever Eyes: No worsening of vision Respiratory: No cough, No dyspnea at rest, No dyspnea on exertion, No shortness of breath, No sputum, No wheezing Cardiovascular: No chest pain Abdomen: No constipation, No diarrhea, No nausea, No pain, No vomiting Genitourinary - Male: No dysuria, No hematuria, No urinary frequency, No urinary hesitancy, No urinary retention Neurologic: + memory loss (improving), + weakness (improving) Endocrine: + fatigue (improving) Integumentary: No rash Physical Exam Date Time Temp Pulse Resp B/P Pulse Ox O2 Delivery O2 Flow Rate FiO2 11/22/16 10:00 82 18 92/58 96 Room Air 11/22/16 08:00 36.7 79 18 106/64 97 Nasal Cannula 2.0 11/22/16 08:00 Nasal Cannula 2.0 11/22/16 05:59 96 18 119/61 96 11/22/16 04:28 97 111/60 97 11/22/16 04:00 36.6 99 20 95/56 96 11/22/16 04:00 99 96 11/22/16 04:00 95 Nasal Cannula 3.0 11/22/16 03:59 101 95/56 97 11/22/16 03:40 102 111/66 98 11/22/16 03:28 108 140/68 97 11/22/16 03:00 106 96 11/22/16 02:46 36.8 104 18 105/58 97 Nasal Cannula 3.0 11/22/16 01:18 37.3 129 22 114/52 96 11/21/16 23:32 131 20 116/96 96 Nasal Cannula 11/21/16 23:10 136 26 106/52 98 Nasal Cannula 2.0 11/21/16 22:37 38.9 11/21/16 22:17 136 11/21/16 22:08 36.7 139 30 83/53 94 Room Air 11/21/16 22:00 94 Room Air General Appearance: WD/WN, no apparent distress Head: normocephalic, atraumatic Eyes: normal inspection ENT: normal ENT inspection, pharynx normal Neck: supple Respiratory/Chest: lungs clear, normal breath sounds, no respiratory distress, no accessory muscle use Cardiovascular: regular rate, rhythm, no murmur Abdomen/GI: normal bowel sounds, non tender, soft, no organomegaly Back: normal inspection Extremities/Musculoskelatal: normal inspection, no calf tenderness, no pedal edema Neurologic/Psych: no motor/sensory deficits, alert, normal mood/affect, oriented x 3 Skin: normal color, warm/dry, no rash Lymphatic: no adenopathy Laboratory Results Last 24 Hours Test 11/21/16 21:11 11/21/16 22:50 11/21/16 22:52 11/21/16 22:56 White Blood Count 13.77 K/uL Red Blood Count 5.90 M/uL Hemoglobin 19.4 g/dL Hematocrit 53.9 % Mean Corpuscular Volume 91.4 fL Mean Corpuscular Hemoglobin 32.9 pg Mean Corpuscular Hemoglobin Concent 36.0 g/dl Platelet Count 234 K/uL Mean Platelet Volume 12.2 fL Neutrophils (%) (Auto) 56.5 % Lymphocytes (%) (Auto) 27.0 % Monocytes (%) (Auto) 15.5 % Eosinophils (%) (Auto) 0.5 % Basophils (%) (Auto) 0.2 % Neutrophils # (Auto) 7.78 K/uL Lymphocytes # (Auto) 3.72 K/uL Monocytes # (Auto) 2.13 K/uL Eosinophils # (Auto) 0.07 K/uL Basophils # (Auto) 0.03 K/uL RDW Standard Deviation 42.3 fL RDW Coefficient of Variation 12.7 % Immature Granulocyte % (Auto) 0.3 % Immature Granulocyte # (Auto) 0.04 K/uL Prothrombin Time 14.0 SECONDS Prothromb Time International Ratio 1.3 Urine Color YELLOW Urine Appearance CLOUDY Urine pH 5.0 Urine Specific [place] >= 1.030 Urine Protein 2+ Urine Glucose (UA) TRACE Urine Ketones TRACE Urine Occult Blood 2+ Urine Nitrite POS Urine Bilirubin NEG Urine Urobilinogen NEG Urine Leukocyte Esterase NEG Urine RBC 10-30 /hpf Urine WBC 1-5 /hpf Urine Epithelial Cells 0-5 /lpf Urine Amorphous Sediment PRESENT Urine Bacteria 3+ Sodium Level 139 mmol/L Potassium Level 4.1 mmol/L Chloride Level 104 mmol/L Carbon Dioxide Level 19 mmol/L Anion Gap 16.0 mmol/L 20.0 mmol/L Blood Urea Nitrogen 43 mg/dl Creatinine 3.20 mg/dl Est Creatinine Clear Calc Drug Dose 23.3 ml/min Estimated GFR () 22.8 Estimated GFR (Non- 19.7 BUN/Creatinine Ratio 13.3 Random Glucose 135 mg/dl Calcium Level 10.8 mg/dl Magnesium Level 1.8 mg/dl Total Bilirubin 1.1 mg/dl Direct Bilirubin 0.5 mg/dl Aspartate Amino Transf (AST/SGOT) 44 U/L Alanine Aminotransferase (ALT/SGPT) 27 U/L Alkaline Phosphatase 81 U/L Total Creatine Kinase 306 U/L Creatine Kinase MB 2.6 ng/ml Creatine Kinase MB Ratio 0.8 Troponin I 0.030 ng/ml Total Protein 8.1 gm/dl Albumin 3.7 gm/dl Random Cortisol 10.92 mcg/dl Salicylates Level < 1.7 mg/dl Acetaminophen Level < 2 ug/ml Bedside Hemoglobin 19.7 g/dl Bedside Hematocrit 58 % Bedside Sodium 141 mEq/L Bedside Potassium 4.4 mEq/L Bedside Chloride 106 mEq/L Bedside Total CO2 20 mEq/l Bedside Blood Urea Nitrogen 44 mg/dl Bedside Creatinine 3.1 mg/dl Bedside Glucose (other) 146 mg/dl Bedside Ionized Calcium (Nora) 1.21 mmol/l Venous Blood pH 7.26 Venous Blood Partial Pressure CO2 53 mmHg Venous Blood Partial Pressure O2 18 mmHg Venous Blood HCO3 23 mmol/L Venous Blood Oxygen Saturation < 60.0 % Venous Blood Base Excess -5.0 mmol/L Ammonia 20.0 umol/L Bedside Lactic Acid Venous 6.07 mmol/L Test 11/22/16 00:00 11/22/16 07:06 11/22/16 09:54 11/22/16 10:11 Urine Random Creatinine 120.0 mg/dl Urine Random Sodium 56 mEq/L Thyroid Stimulating Hormone (TSH) 1.580 uIu/ml Sodium Level 144 mmol/L Potassium Level 4.0 mmol/L Chloride Level 113 mmol/L Carbon Dioxide Level 19 mmol/L Anion Gap 12.0 mmol/L Blood Urea Nitrogen 40 mg/dl Creatinine 1.90 mg/dl Est Creatinine Clear Calc Drug Dose 40.0 ml/min Estimated GFR () 42.8 Estimated GFR (Non- 37.0 BUN/Creatinine Ratio 21.0 Random Glucose 169 mg/dl Lactic Acid Level 2.1 mmol/L Calcium Level 8.7 mg/dl Procalcitonin 19.34 ng/mL Test 11/22/16 11:03 11/22/16 11:15 Bedside Glucose 149 mg/dl Diagnostic Results SINGLE VIEW CHEST CLINICAL HISTORY: Fever. FINDINGS: An AP, portable, upright chest radiograph is compared to study dated 12/25/12. The examination is degraded by portable technique and patient rotation. The cardiomediastinal silhouette is unremarkable. After carotid calcification is noted in the thoracic aorta. Chronic interstitial thickening is noted. There are streaky bibasilar airspace opacities. No large pleural effusion or pneumothorax is seen. The skeletal structures are osteopenic. The bony thorax is grossly intact. Surgical anchors are present in the right humeral head. IMPRESSION: There are streaky bibasilar airspace opacities. This could represent atelectasis and/or an infectious or inflammatory pneumonitis. Clinical correlation will be required. [~ rep ct add3]] CT OF THE HEAD WITHOUT CONTRAST CLINICAL HISTORY: Altered mental status. COMPARISON STUDY: No previous studies for comparison. TECHNIQUE: Helical axial images of the head were obtained without IV contrast. Automated exposure control was utilized for the study. FINDINGS: No acute intracranial hemorrhage, midline shift or mass effect is present. Brain volume is normal for age. Ventricular system is normal. The basilar cisterns are patent. No extra-axial collections are present. Mild white matter hypodensity suggests small vessel disease. There are no findings to suggest acute dural sinus thrombosis or acute territorial infarct. There is no calvarial fracture. There may be a small amount of fluid within the left mastoid air cells. Sinuses are clear. IMPRESSION: No acute intracranial findings. CT SCAN OF THE ABDOMEN AND PELVIS WITHOUT CONTRAST CLINICAL HISTORY: sepsis COMPARISON STUDY: 12/25/2012 TECHNIQUE: CT scan of the abdomen and pelvis was performed from the lung bases to the proximal femurs. Images are reviewed in the axial, sagittal, and coronal planes. IV contrast was not administered for this examination. CT DOSE: 1220.00 mGy.cm FINDINGS: Lower chest: There are calcified right hilar lymph nodes. There is mild thickening of interlobular septa. There is a calcified right lower lobe granuloma Liver: No focal hepatic masses are visualized in this noncontrast study. Gallbladder: Unremarkable. Spleen: Normal in size and attenuation. Pancreas: Unremarkable. Adrenal glands: Unremarkable. Kidneys: No renal, ureteral, or bladder calculi are visualized. Bowel: There are no transition zones indicate bowel obstruction. There are scattered colonic diverticula present. There is no acute diverticulitis. The appendix is mildly dilated measuring 8 mm. This however remains unchanged from the prior study. There are no periappendiceal inflammatory changes. Peritoneum: There is no intraperitoneal free air or abdominal ascites. Vasculature: The abdominal aorta is normal in course and caliber. Adenopathy: None. Pelvic viscera: The bladder, and pelvic viscera are unremarkable. Postsurgical changes are present in the region of the ankle canals. There is a small amount of fluid within the right inguinal canal. There is a droplet of air within the bladder, likely iatrogenic. Skeletal structures: No destructive osseous lesions are seen. IMPRESSION: 1. No evidence of bowel obstruction. No evidence of free air 2. Small hiatal hernia 3. No evidence of acute diverticulitis 4. Mildly dilated appendix, but no evidence of periappendiceal inflammatory change. As the appendiceal diameter remains unchanged from the prior study, the study is felt to be negative for acute appendicitis Assessment & Plan 1. Severe sepsis meeting SIRS criteria most likely secondary to a urinary source 2. RUCHI most likely secondary to sepsis and dehydration 3. Hypotension most likely multifactorial 4. H/O Esophageal ulcers 5. Troponin elevation 6. Daily prednisone use NVS - alert and oriented at this time, continue to monitor for any changes CVS - Currently tachycardic most likely secondary to infection - continue to monitor on tele - troponin elevation most likely supply and demand but will trend - EKG considering QtC was >500 and in 2013 was 412 RVS - CXR WNL - continue to monitor O2 sat - O2 as per nursing protocol GI -regular diet - protonix PO cont'd RENAL - recheck BMP in the am - continue NSS IVF - I&O ID - Cefepime was d/c because of QTc - Rocephin cont'd - adjust based on culture sensitivities/ clinical picture - +MRSA- contact precautions HEME CBC in am ENDO - Hydrocort q 8 hours -HBA1C FULL CODE Resident Physician Supervision Note: Dr. Alcazar was resident physician during care of patient. I separately evaluated patient and did history and exam. I discussed the case with the resident and generally agree with the findings and plan. Delayed entry into chart. Patient was admitted to the ICU for concern for severe sepsis, however I believe he better. The definition of sepsis, the patient did experience hypotension however I believe this secondary to a relative adrenal insufficiency due to chronic steroid use. The patient is unsure of the reason he is on the daily steroids. The likely source of infection is the urine with positive nitrates and organisms seen. Facet a prolonged QT on EKG necessitating a change in his antibiotic regimen. Given adequate crystalloid challenge and subsequently given stress dose steroids which significantly improved his blood pressure. Patient's creatinine continued gout trend with adequate volume resuscitation. Patient was ultimately ready to be transferred to the hospitalist service. I have personally spent 35 minutes of critical care time in the direct management of this patient. This is a life/limb threatening event. This includes time spent evaluating patient, direct bedside care, chart review, placing orders, interpretation of diagnostic studies, discussion with consultants, patient, and family members, as well as other required patient management activities. This time is exclusive of all separately billable procedures, and teaching time and separate from and in addition to any other critical care service time. Documented By: Kedar Long DO
--- NOTE | 2016-11-22 16:06 | DIAGNOSTIC IMAGING REPORT ---
RENAL ULTRASOUND HISTORY: Acute kidney injury. COMPARISON: Abdomen and pelvis CT 11/21/2016. FINDINGS: Right kidney: 9.7 cm. No hydronephrosis. Normal corticomedullary differentiation and cortical thickness. Left kidney: 11.3 cm. No hydronephrosis. Normal corticomedullary differentiation and cortical thickness. Bladder: No bladder wall thickening. The bilateral ureteral jets were not identified. IMPRESSION: Normal renal ultrasound. Electronically signed by: Jeramy Mcgee M.D. 11/22/2016 4:04 PM Dictated Date/Time: 11/22/2016 4:01 PM
[2016-11-22] MEDS: CEFTRIAXONE SOD INJ 1000 MG in DEXTROSE 5% 50ML IV SCH (21:20)
[2016-11-22] MEDS ORDERED: CEFEPIME IV 1,000 MG in DEXTROSE 5% 100ML 100 ML IV SCH (23:00)
[2016-11-23] VITALS (12 sets, daily range): BP systolic 110–156; BP diastolic 52–87; PULSE 67–89; TEMP 36.5–36.8; O2SAT 95–98
[2016-11-23] MEDS: HEPARIN SOD 5000 UNIT/0.5 ML CARP SQ SCH ×3 (05:55→22:22)
[2016-11-23 06:30] LABS: BASO % 0.1 %; BASO ABS # 0.01 K/uL (0-0.2); COMPLETE YES; EOS % 0.1 %; HEMATOCRIT 38.9 % (42-52); IG% 0.2 %; LYMPH % 10.6 %; LYMPH ABS # 1.35 K/uL (1.2-3.4); MEAN CELL VOLUME 93.1 fL (80-100); MEAN CORPUSCULAR HEMOGLOBIN 32.3 pg (25-34); MEAN CORPUSCULAR HGB CONC 34.7 g/dl (32-36); MEAN PLATELET VOLUME 11.6 fL (7.4-10.4); MONO % 8.8 %; NEUT % 80.2 %; PLATELET COUNT 132 K/uL (130-400); RED BLOOD COUNT 4.18 M/uL (4.7-6.1); WHITE BLOOD COUNT 12.75 K/uL (4.8-10.8)
[2016-11-23 06:45] LABS: ESTIMATED AVERAGE GLUCOSE 114 mg/dl; HA1C FLAG Normal (Normal)
[2016-11-23 07:06] LABS: BUN/CREATININE RATIO 32.2 (10-20); CALCIUM 8.7 mg/dl (8.5-10.1); CREATININE 1.1 mg/dl (0.60-1.40); MAGNESIUM 1.9 mg/dl (1.8-2.4); POTASSIUM 3.9 mmol/L (3.5-5.1)
[2016-11-23 07:10] LABS: ALB/GLOB RATIO 0.9 (0.9-2); PHOSPHORUS 2.6 mg/dl (2.5-4.9)
[2016-11-23] MEDS: BOOST VANILLA PO SCH ×6 (07:15→17:18)
[2016-11-23] MEDS: PANTOprazole SOD 40 MG TAB PO SCH (08:40)
[2016-11-23] MEDS: HYDROCORTISONE IV 100 MG in SYRINGE 0 ML IV SCH ×2 (08:41→17:18)
[2016-11-23] MEDS ORDERED: CEFTRIAXONE SOD INJ 1 GM ADDVIAL IV SCH (09:00)
[2016-11-23] MEDS ORDERED: BOOST VANILLA PO SCH ×2 (11:30)
--- NOTE | 2016-11-23 17:04 | Progress Note ---
Subjective Date of Service: Nov 23, 2016. Subjective Pt evaluation today including: conversation w/ patient, physical exam, chart review, lab review Problem List Medical Problems: (1) Acute kidney injury Status: Acute (2) Altered mental status Status: Acute (3) Leukocytosis Status: Acute (4) Metabolic acidosis Status: Acute Review of Systems Constitutional: No chills, No fatigue, No fever, No problem reported, No see HPI, No sweats, No weakness, No weight loss Eyes: No diplopia, No discharge, No eye pain, No problem reported, No redness, No see HPI, No worsening of vision ENT: No dental problems, No hearing loss, No nasal symptoms, No problem reported, No see HPI, No sore throat, No tinnitus, No trouble swallowing, No unusual epistaxis Respiratory: No cough, No dyspnea at rest, No dyspnea on exertion, No hemoptysis, No problem reported, No see HPI, No shortness of breath, No sputum, No wheezing Cardiac: No PND, No chest pain, No claudication, No edema, No orthopnea, No palpitations, No problem reported, No see HPI Abdomen: No GI bleeding, No constipation, No diarrhea, No nausea, No pain, No problem reported, No see HPI, No vomiting Musculoskeletal: No calf pain, No joint pain, No muscle pain, No problem reported, No see HPI, No swelling Male : No dysuria, No hematuria, No incontinence, No nocturia more than once/ night, No problem reported, No see HPI, No sexual dysfunction, No slowing stream , No urinary frequency Neurologic: No balance problems, No memory loss, No numbness/tingling, No paralysis, No problem reported, No see HPI, No vertigo, No weakness Psychiatric: No anhedonism, No anxiety, No depression symptoms, No insomnia, No problem reported, No see HPI, No substance abuse Heme: No abnormal bleeding/bruising, No clotting problems, No night sweats, No problem reported, No see HPI, No swollen lymph nodes Endo: No excessive thirst, No excessive urination, No fatigue, No problem reported, No see HPI Skin: No bleeding, No color change, No itch, No new/changing skin lesions, No problem reported, No rash, No see HPI Objective Vital Signs Date Time Temp Pulse Resp B/P Pulse Ox O2 Delivery O2 Flow Rate FiO2 11/23/16 15:26 Room Air 11/23/16 14:12 89 98 11/23/16 11:20 Room Air 11/23/16 11:00 76 11/23/16 10:58 36.5 72 142/83 95 11/23/16 10:00 69 11/23/16 08:58 75 129/71 11/23/16 08:46 36.7 73 136/79 95 Room Air 11/23/16 08:15 Room Air 11/23/16 08:00 80 11/23/16 07:00 71 11/23/16 04:00 36.8 68 12 110/52 96 Room Air 11/23/16 04:00 Room Air 11/22/16 23:59 Room Air 11/22/16 23:59 36.6 74 12 119/66 96 Room Air 11/22/16 20:00 36.5 85 16 104/55 96 Room Air 11/22/16 20:00 Room Air Physical Exam General Appearance: no apparent distress Eyes: normal inspection, PERRL, EOMI ENT: normal ENT inspection, hearing grossly normal, TMs normal, pharynx normal Neck: supple, no adenopathy, thyroid normal, no JVD Respiratory/Chest: chest non-tender, lungs clear, normal breath sounds, no respiratory distress, no accessory muscle use Cardiovascular: regular rate, rhythm, no edema, no gallop, no JVD, no murmur Abdomen: normal bowel sounds, non tender, soft, no organomegaly, no pulsatile mass Extremities: normal range of motion, non-tender, normal inspection, no pedal edema, no calf tenderness Neurologic/Psychiatric: vp of marketing II-XII nml as tested, no motor/sensory deficits, alert, normal mood/affect, oriented x 3 Skin: normal color, warm/dry, no rash Laboratory Results Last 24 Hours Test 11/22/16 22:08 11/23/16 05:46 11/23/16 14:55 Troponin I 0.033 ng/ml 0.029 ng/ml 0.020 ng/ml White Blood Count 12.75 K/uL Red Blood Count 4.18 M/uL Hemoglobin 13.5 g/dL Hematocrit 38.9 % Mean Corpuscular Volume 93.1 fL Mean Corpuscular Hemoglobin 32.3 pg Mean Corpuscular Hemoglobin Concent 34.7 g/dl Platelet Count 132 K/uL Mean Platelet Volume 11.6 fL Neutrophils (%) (Auto) 80.2 % Lymphocytes (%) (Auto) 10.6 % Monocytes (%) (Auto) 8.8 % Eosinophils (%) (Auto) 0.1 % Basophils (%) (Auto) 0.1 % Neutrophils # (Auto) 10.23 K/uL Lymphocytes # (Auto) 1.35 K/uL Monocytes # (Auto) 1.12 K/uL Eosinophils # (Auto) 0.01 K/uL Basophils # (Auto) 0.01 K/uL RDW Standard Deviation 45.4 fL RDW Coefficient of Variation 13.2 % Immature Granulocyte % (Auto) 0.2 % Immature Granulocyte # (Auto) 0.03 K/uL Sodium Level 143 mmol/L Potassium Level 3.9 mmol/L Chloride Level 114 mmol/L Carbon Dioxide Level 16 mmol/L Anion Gap 13.0 mmol/L Blood Urea Nitrogen 35 mg/dl Creatinine 1.10 mg/dl Est Creatinine Clear Calc Drug Dose 71.9 ml/min Estimated GFR () 82.9 Estimated GFR (Non- 71.6 BUN/Creatinine Ratio 32.2 Random Glucose 142 mg/dl Estimated Average Glucose 114 mg/dl Hemoglobin A1c 5.6 % Calcium Level 8.7 mg/dl Phosphorus Level 2.6 mg/dl Magnesium Level 1.9 mg/dl Total Bilirubin 0.5 mg/dl Direct Bilirubin 0.2 mg/dl Aspartate Amino Transf (AST/SGOT) 33 U/L Alanine Aminotransferase (ALT/SGPT) 25 U/L Alkaline Phosphatase 48 U/L Total Protein 6.5 gm/dl Albumin 3.0 gm/dl Globulin 3.5 gm/dl Albumin/Globulin Ratio 0.9 Assessment and Plan 61 y/o M w/Hx esophageal ulcers and possible history of IBD, Hx of adrenal insufficiency. recently discontinued steroids ? possibly taking it for IBD, presented with lethargy and hypotension. Acute renal failure 1) Fever , hypotension - I suspect it is secondary to adrenal insufficiency giving his rapid response to steroids/IVF possible urosepsis - Pt started on Cefepime pending culture results -transfer out of ICU to telemetry continues to improve 2) Hypotension - as per previous admissions this may be multifactorial related to infection and adrenal insufficiency or relative insufficiency and dehydration . His prednisone Rx appears to be for only 0.5mg daily and his compliance may be variable , random cortisol level is 10.9 which in some one who was severely hypotensive is suggestive of relative adrenal insufficiency. continue Hydrocortisone , decrease dose to 50mg TID. 3) Esophageal ulcers - continue daily IV protonix 4) ARF - this had occurred previously when he was admitted with hypotension - urine lytes obtained - aggressive hydration - recheck BMP AM - labs are consistent with severe dehydration, order renal US yesterday I [facility], confirmed that he is supposed to be on prednisone 0.5mg po daily, Triage nurse did not find out the reason in his Hx, will try to reach out for his PCP
[2016-11-23] MEDS: CEFTRIAXONE SOD INJ 1000 MG in DEXTROSE 5% 50ML IV SCH (20:07)
[2016-11-24] VITALS (8 sets, daily range): BP systolic 141–168; BP diastolic 79–95; PULSE 65–75; TEMP 36.3–37; O2SAT 96–99
[2016-11-24] MEDS: HYDROCORTISONE IV 100 MG in SYRINGE 0 ML IV SCH (00:11)
[2016-11-24] MEDS: HEPARIN SOD 5000 UNIT/0.5 ML CARP SQ SCH ×3 (06:22→21:12)
[2016-11-24 06:43] LABS: HEMATOCRIT 37.9 % (42-52); MEAN CELL VOLUME 91.3 fL (80-100); MEAN CORPUSCULAR HEMOGLOBIN 32.8 pg (25-34); MEAN CORPUSCULAR HGB CONC 35.9 g/dl (32-36); PLATELET COUNT 129 K/uL (130-400); RED BLOOD COUNT 4.15 M/uL (4.7-6.1); WHITE BLOOD COUNT 10.14 K/uL (4.8-10.8)
[2016-11-24 06:44] LABS: BUN/CREATININE RATIO 39.8 (10-20); CALCIUM 9.1 mg/dl (8.5-10.1); CREATININE 0.82 mg/dl (0.60-1.40); MAGNESIUM 2.1 mg/dl (1.8-2.4); POTASSIUM 3.8 mmol/L (3.5-5.1)
[2016-11-24 06:46] LABS: ALB/GLOB RATIO 0.9 (0.9-2); PHOSPHORUS 2.9 mg/dl (2.5-4.9)
[2016-11-24 07:14] LABS: BASO % 0.1 %; BASO ABS # 0.01 K/uL (0-0.2); COMPLETE YES; IG% 0.2 %; LYMPH % 10.4 %; LYMPH ABS # 1.05 K/uL (1.2-3.4); MONO % 5.7 %; NEUT % 83.6 %
[2016-11-24] MEDS: BOOST VANILLA PO SCH ×6 (07:55→16:47)
[2016-11-24] MEDS: PANTOprazole SOD 40 MG TAB PO SCH (07:56)
[2016-11-24] MEDS: NICOTINE 14 MG/24 HR TDSY TD SCH ×2 (07:56→16:00)
--- NOTE | 2016-11-24 08:14 | Progress Note ---
Subjective Date of Service: Nov 24, 2016. Subjective Pt evaluation today including: conversation w/ patient, physical exam, chart review, lab review, review of studies Problem List Medical Problems: (1) Acute kidney injury Status: Acute (2) Altered mental status Status: Acute (3) Leukocytosis Status: Acute (4) Metabolic acidosis Status: Acute Review of Systems Constitutional: No chills, No fatigue, No fever, No problem reported, No see HPI, No sweats, No weakness, No weight loss Eyes: No diplopia, No discharge, No eye pain, No problem reported, No redness, No see HPI, No worsening of vision ENT: No dental problems, No hearing loss, No nasal symptoms, No problem reported, No see HPI, No sore throat, No tinnitus, No trouble swallowing, No unusual epistaxis Respiratory: No cough, No dyspnea at rest, No dyspnea on exertion, No hemoptysis, No problem reported, No see HPI, No shortness of breath, No sputum, No wheezing Cardiac: No PND, No chest pain, No claudication, No edema, No orthopnea, No palpitations, No problem reported, No see HPI Abdomen: No GI bleeding, No constipation, No diarrhea, No nausea, No pain, No problem reported, No see HPI, No vomiting Musculoskeletal: No calf pain, No joint pain, No muscle pain, No problem reported, No see HPI, No swelling Male : No dysuria, No hematuria, No incontinence, No nocturia more than once/ night, No problem reported, No see HPI, No sexual dysfunction, No slowing stream , No urinary frequency Neurologic: No balance problems, No memory loss, No numbness/tingling, No paralysis, No problem reported, No see HPI, No vertigo, No weakness Psychiatric: No anhedonism, No anxiety, No depression symptoms, No insomnia, No problem reported, No see HPI, No substance abuse Heme: No abnormal bleeding/bruising, No clotting problems, No night sweats, No problem reported, No see HPI, No swollen lymph nodes Endo: No excessive thirst, No excessive urination, No fatigue, No problem reported, No see HPI Skin: No bleeding, No color change, No itch, No new/changing skin lesions, No problem reported, No rash, No see HPI Medications Current Inpatient Medications Medications (Trade) Dose Ordered Sig/Rhea Route Start Time Stop Time Status Last Admin Dose Admin Heparin Sodium (Porcine) (Heparin Sq 5000 Unit/0.5ml) 5,000 unit Q8H SQ 11/22/16 06:00 12/22/16 05:59 11/24/16 06:22 5,000 UNIT Acetaminophen (Tylenol Tab) 650 mg Q4H PRN PO 11/22/16 00:45 12/22/16 00:44 Lorazepam (Ativan Tab) 0.5 mg Q4H PRN PO 11/22/16 00:45 12/22/16 00:44 Morphine Sulfate (MoRPHine SULFATE INJ) 2 mg Q2H PRN IV 11/22/16 00:45 12/06/16 00:44 Pantoprazole Sodium 40 mg 40 mg QAM PO 11/22/16 11:00 12/22/16 10:59 11/23/16 08:40 40 MG Ceftriaxone Sodium/Dextrose (Rocephin Inj/ Dextrose Add-[place] 50ML) 50 ml @ 100 mls/hr Q24H IV 11/22/16 21:00 12/02/16 20:59 11/23/16 20:07 100 MLS/HR Enteral Nutritional Formula (Boost) 1 can TIDM PO 11/22/16 11:30 12/22/16 11:29 11/23/16 17:18 1 CAN Nicotine (Nicoderm Cq 14MG Patch) 1 patch QAM TD 11/24/16 09:00 12/24/16 08:59 Miscellaneous (Remove Nicoderm Patch) 1 ea HS N/A 11/24/16 21:00 12/24/16 20:59 Prednisone (PredniSONE TAB) 50 mg DAILY PO 11/24/16 09:00 12/24/16 08:59 UNV Objective Vital Signs Date Time Temp Pulse Resp B/P Pulse Ox O2 Delivery O2 Flow Rate FiO2 11/24/16 04:00 96 Room Air 11/24/16 04:00 36.5 69 15 160/95 96 Room Air 11/24/16 00:00 96 Room Air 11/24/16 00:00 36.5 75 17 141/79 96 Room Air 11/23/16 20:00 36.7 77 16 156/87 96 Room Air 11/23/16 20:00 96 Room Air 11/23/16 17:00 67 11/23/16 15:26 Room Air 11/23/16 15:00 71 134/69 95 11/23/16 14:12 89 98 11/23/16 11:20 Room Air 11/23/16 11:00 76 11/23/16 10:58 36.5 72 142/83 95 11/23/16 10:00 69 11/23/16 08:58 75 129/71 11/23/16 08:46 36.7 73 136/79 95 Room Air 11/23/16 08:15 Room Air 11/23/16 08:00 80 Physical Exam General Appearance: no apparent distress Eyes: normal inspection, PERRL, EOMI ENT: hearing grossly normal, TMs normal, pharynx normal Neck: supple, no adenopathy, thyroid normal Respiratory/Chest: chest non-tender, lungs clear, normal breath sounds, no respiratory distress, no accessory muscle use Cardiovascular: regular rate, rhythm, no edema, no gallop, no JVD, no murmur Abdomen: normal bowel sounds, non tender, soft, no organomegaly Extremities: normal range of motion, non-tender, normal inspection, no pedal edema Neurologic/Psychiatric: stencil inspector II-XII nml as tested, no motor/sensory deficits, alert, normal mood/affect, oriented x 3 Skin: normal color Laboratory Results Last 24 Hours Test 11/23/16 14:55 11/24/16 05:20 Troponin I 0.020 ng/ml White Blood Count 10.14 K/uL Red Blood Count 4.15 M/uL Hemoglobin 13.6 g/dL Hematocrit 37.9 % Mean Corpuscular Volume 91.3 fL Mean Corpuscular Hemoglobin 32.8 pg Mean Corpuscular Hemoglobin Concent 35.9 g/dl Platelet Count 129 K/uL Mean Platelet Volume 12.0 fL Neutrophils (%) (Auto) 83.6 % Lymphocytes (%) (Auto) 10.4 % Monocytes (%) (Auto) 5.7 % Eosinophils (%) (Auto) 0.0 % Basophils (%) (Auto) 0.1 % Neutrophils # (Auto) 8.48 K/uL Lymphocytes # (Auto) 1.05 K/uL Monocytes # (Auto) 0.58 K/uL Eosinophils # (Auto) 0.00 K/uL Basophils # (Auto) 0.01 K/uL RDW Standard Deviation 43.7 fL RDW Coefficient of Variation 13.0 % Immature Granulocyte % (Auto) 0.2 % Immature Granulocyte # (Auto) 0.02 K/uL Red Blood Cell Morphology Unremarkable Sodium Level 144 mmol/L Potassium Level 3.8 mmol/L Chloride Level 113 mmol/L Carbon Dioxide Level 18 mmol/L Anion Gap 13.0 mmol/L Blood Urea Nitrogen 33 mg/dl Creatinine 0.82 mg/dl Est Creatinine Clear Calc Drug Dose 96.4 ml/min Estimated GFR () 109.8 Estimated GFR (Non- 94.8 BUN/Creatinine Ratio 39.8 Random Glucose 134 mg/dl Calcium Level 9.1 mg/dl Phosphorus Level 2.9 mg/dl Magnesium Level 2.1 mg/dl Total Bilirubin 0.5 mg/dl Direct Bilirubin 0.2 mg/dl Aspartate Amino Transf (AST/SGOT) 32 U/L Alanine Aminotransferase (ALT/SGPT) 30 U/L Alkaline Phosphatase 52 U/L Total Protein 6.6 gm/dl Albumin 3.2 gm/dl Globulin 3.4 gm/dl Albumin/Globulin Ratio 0.9 Assessment and Plan 61 y/o M w/Hx esophageal ulcers and possible history of IBD, Hx of adrenal insufficiency. recently discontinued steroids ? possibly taking it for IBD, presented with lethargy and hypotension. Acute renal failure, as per patient turned out he stopped his prednisone 1) Fever , hypotension - I suspect it is secondary to adrenal insufficiency giving his rapid response to steroids/IVF possible urosepsis - Continue CTXN pending culture results -transfer out of ICU to medicine continues to improve 2) Hypotension - as per previous admissions this may be multifactorial related to infection and adrenal insufficiency or relative insufficiency and dehydration . His prednisone Rx appears to be for only 0.5mg daily and his compliance may be variable , random cortisol level is 10.9 which in some one who was severely hypotensive is suggestive of relative adrenal insufficiency. switch Hydrocortisone , to prednisone, monitor him today with oral prednisone, 3) Esophageal ulcers - continue daily IV protonix 4) ARF likely secondary to hypotension, resolved
--- NOTE | 2016-11-24 12:38 | Clinical Documentation Query ---
QUERY 1 OF [address] DEION AGUIRRE, In your clinical opinion is this patient being managed for: (X ) Metabolic encephalopathy ( ) Other explanation of clinical findings (Please Explain) ( ) Unable to determine (Please Define) ( ) Need to Discuss ( ) Not Agree The medical record reflects the following clinical findings, treatment, and risk factors. Clinical Indicators: 61 yo male presenting with an altered mental status. CT head negative for acute findings. BUN 43, Cr 3.20 Treatment: 3L NSS bolus, IV vancomycin, IV cefepime, IV rocephin, IV solucortef Risk Factors: adrenal insufficiency, RUCHI QUERY 2 OF 2 In your clinical opinion is this patient being managed for: ( X ) SIRS due to noninfectious source --adrenal insufficiency ( ) Other explanation of clinical findings (Please Explain) ( ) Unable to determine (Please Define) ( ) Need to Discuss ( ) Not Agree The medical record reflects the following clinical findings, treatment, and risk factors. Clinical Indicators: ER impression indicates sepsis as well as the battery engineer consult indicating severe sepsis from a urinary source. Vitals 38.9-139-30, 83/53, urine and blood cultures showed no growth. Treatment: 3L NSS bolus, ICU, IV vancomycin, IV cefepime, and IV rocephin. IV solucortef, prednisone Risk Factors:adrenal insufficiency, RUCHI Please clarify and document your clinical opinion in the progress notes and discharge summary. Terms such as "probable", "suspected", "likely", "questionable", "possible", or "still to be ruled out" are acceptable. IF IN AGREEMENT, YOU MUST DOCUMENT ABOVE DIAGNOSTIC STATEMENT IN DAILY PROGRESS NOTES AND DISCHARGE SUMMARY. This document is not part of the patient's record. Thank You, Halle Mejia RN [phone]
[2016-11-24] MEDS: CEFUROXIME AXETIL 250 MG TAB PO SCH (16:46)
[2016-11-25 00:15] VITALS: BP 114/61; PULSE 68; TEMP 36.3; O2SAT 96
[2016-11-25] MEDS: HEPARIN SOD 5000 UNIT/0.5 ML CARP SQ SCH ×2 (06:39→14:00)
[2016-11-25 07:14] LABS: HEMATOCRIT 36.4 % (42-52); MEAN CELL VOLUME 91.2 fL (80-100); MEAN CORPUSCULAR HEMOGLOBIN 32.1 pg (25-34); MEAN CORPUSCULAR HGB CONC 35.2 g/dl (32-36); MEAN PLATELET VOLUME 12.1 fL (7.4-10.4); PLATELET COUNT 129 K/uL (130-400); RED BLOOD COUNT 3.99 M/uL (4.7-6.1); WHITE BLOOD COUNT 7.18 K/uL (4.8-10.8)
[2016-11-25 07:28] VITALS: BP 163/85; PULSE 58; TEMP 36.3; O2SAT 99
[2016-11-25 07:36] LABS: BASO % 0.1 %; BASO ABS # 0.01 K/uL (0-0.2); COMPLETE YES; EOS % 0.1 %; IG% 0.1 %; LYMPH % 25.9 %; LYMPH ABS # 1.86 K/uL (1.2-3.4); MONO % 9.7 %; NEUT % 64.1 %
[2016-11-25 07:38] LABS: BUN/CREATININE RATIO 35.3 (10-20); CALCIUM 8.9 mg/dl (8.5-10.1); CREATININE 0.74 mg/dl (0.60-1.40); MAGNESIUM 2.1 mg/dl (1.8-2.4); POTASSIUM 3.4 mmol/L (3.5-5.1)
[2016-11-25 07:41] LABS: PHOSPHORUS 2.8 mg/dl (2.5-4.9)
[2016-11-25 08:00] VITALS: O2SAT 99
[2016-11-25] MEDS: BOOST VANILLA PO SCH ×4 (08:19→12:00)
[2016-11-25] MEDS: CEFUROXIME AXETIL 250 MG TAB PO SCH (08:19)
[2016-11-25] MEDS: PANTOprazole SOD 40 MG TAB PO SCH (08:19)
[2016-11-25] MEDS: NICOTINE 14 MG/24 HR TDSY TD SCH (08:19)
[2016-11-25] MEDS ORDERED: PRED-301 PO (13:36)
--- NOTE | 2016-11-25 13:36 | Discharge Instructions ---
Discharge Instructions Admission Admission Date: Nov 22, 2016 at 00:45 Admission Diagnosis: Sepsis, Uti. Discharge Care Plan - Problem: Medical Problems: (1) Acute kidney injury (2) Altered mental status (3) Leukocytosis (4) Metabolic acidosis Care Plan - Goal(s): Improve function Care Plan - Instructions: Recommended Home Diet: AHA Phase I (2gmNa/LoCho) VTE Core Measure Inpt VTE Proph given/why not?: Unfractionated heparin SQ Laboratory Results Test Results: Hemoglobin A1c Test 11/23/16 05:46 Range/Units Estimated Average Glucose 114 mg/dl Hemoglobin A1c 5.6 4.5-5.6 % Gennaro Banks Recommendations: Call your doctor if: * Temperature above 101 degrees * Pain not relieved by pain medicine ordered * There is increased drainage or redness from any incision * You have any unanswered questions or concerns. Your Doctors Instructions noted above were prepared by provider Sharon Caraballo.
--- NOTE | 2016-11-25 13:50 | Discharge Summary ---
Discharge Summary Admission Date: Nov 22, 2016 at 00:45 Discharge Date: Nov 25, 2016 Discharge Disposition: Home with services Immunizations: Have You Had Influenza Vaccine: No History of Tetanus Vaccine?: No History of Pneumococcal: No History of Hepatitis B Vaccine: No Medication Reconciliation New Medications: Prednisone (Prednisone) 5 Mg Tab 5 MG PO DAILY for 30 Days, #120 TAB take 8 tablets by mouth daily for 2 days then 6 tablets by mouth a day for 2 days then 4 tablets by mouth a day for 1 day then 2 tablets by mouth a day for 1 day then one tablet by mouth a day for 2 days then 1/2 tablet by mouth until you see your family physician Continued Medications: Cholecalciferol (Vitamin D3) 1,000 Unit Tab 1 TAB PO DAILY for 30 Days, #30 TAB 5 Refills Multiple Vitamins W/ Minerals (Centrum Silver Ultra Mens) 1 Tab Tab 1 TAB PO DAILY Nutritional Supplements (Boost) 1 Liq Liq 3-4 CAN PO DAILY Omeprazole (Prilosec) 40 Mg Capcr 40 MG PO DAILY, CAP Discharge Exam follow up with family physician in one week Needs home health visiting nurse to adjust his medication and confirm compliance with meds, espicially the taperring of prednisone can be confusing Review of Systems: Constitutional: No chills, No fatigue, No fever, No problem reported, No sweats, No weakness, No weight loss Eyes: No diplopia, No discharge, No eye pain, No problem reported, No redness, No worsening of vision ENT: No dental problems, No hearing loss, No nasal symptoms, No problem reported, No sore throat, No tinnitus, No trouble swallowing, No unusual epistaxis Respiratory: No cough, No dyspnea at rest, No dyspnea on exertion, No hemoptysis, No problem reported, No shortness of breath, No sputum, No wheezing Cardiovascular: No PND, No chest pain, No claudication, No edema, No orthopnea, No palpitations, No problem reported Abdomen: No GI bleeding, No constipation, No diarrhea, No nausea, No pain, No problem reported, No vomiting Musculoskeletal: No calf pain, No joint pain, No muscle pain, No problem reported, No swelling Genitourinary - Female: No dysmenorrhea, No dysuria, No hematuria, No menorrhagia, No metrorrhagia, No , No problem reported, No rash, No urinary frequency, No urinary incontinence, No urinary retention, No urinary urgency, No vaginal bleeding, No vaginal discharge, No vaginal itching, No vulvodynia Genitourinary - Male: No dysuria, No hematuria, No impotence, No lesions, No penile discharge, No problem reported, No urinary frequency, No urinary hesitancy, No urinary incontinence, No urinary retention, No urinary urgency Neurologic: No balance problems, No memory loss, No numbness/tingling, No paralysis, No problem reported, No vertigo, No weakness Psychiatric: No anhedonism, No anxiety, No depression symptoms, No insomnia , No problem reported, No substance abuse Endocrine: No excessive thirst, No excessive urination, No fatigue, No problem reported Hematologic / Lymphatic: No abnormal bleeding/bruising, No clotting problems , No night sweats, No problem reported, No swollen lymph nodes Integumentary: No bleeding, No color change, No itch, No new/changing skin lesions, No problem reported, No rash Physical Exam: General Appearance: no apparent distress Eyes: normal inspection, PERRL, EOMI ENT: normal ENT inspection, hearing grossly normal Neck: supple Respiratory/Chest: chest non-tender, lungs clear, normal breath sounds, no respiratory distress Cardiovascular: regular rate, rhythm, no edema, no gallop, no JVD, no murmur Abdomen / GI: normal bowel sounds, non tender, soft Extremities: normal inspection, no calf tenderness Neurologic/Psychiatric: analysis intern II-XII nml as tested, no motor/sensory deficits , alert, normal mood/affect, oriented x 3 Skin: normal color, warm/dry, no rash Hospital Course 61 y/o M w/Hx esophageal ulcers and possible history of IBD, Hx of adrenal insufficiency. recently discontinued steroids ? possibly taking it for IBD, presented with lethargy and hypotension. Acute renal failure, as per patient turned out he stopped his prednisone initially was admitted to ICU , also found to have ARF likely secondary to hypotension, resolved with IVF for his Fever , hypotension - I suspected it is secondary to adrenal insufficiency giving his rapid response to steroids/IVF ( previous admissions this may be multifactorial related to infection and adrenal insufficiency or relative insufficiency and dehydration ) random cortisol level is 10.9 which in some one who was severely hypotensive confirmed the diagnosis of relative adrenal insufficiency. His prednisone Rx appears to be for only 0.5mg daily and his compliance may be variable , possible urosepsis - started on CTXN , all cultures were negative so Abx were stopped upon discharge for Esophageal ulcers - continue daily IV protonix he will be discharge on tapering dose of prednisone, until he reaches 2.5mg prednisone then he will be kept on that until he sees his PCP This includes examination of the patient, discharge planning, medication reconciliation, and communication with other providers. Discharge Instructions Please refer to the electronic Patient Visit Report (Discharge Instructions) for additional information.
[2016-11-25 14:12] VITALS: BP 163/85; PULSE 58; TEMP 36.3; O2SAT 99
== END 2016-11-25 14:50 | disposition home health service (06) | DRG 643 ==
LOC: ENRESERVDT → ENRESERVTM → CANRESERV → EDBD 21:51 → C.EDB 21:53 → C.MSICU 11-22 00:45 → C.4E 11-24 07:54
PROVIDERS: ADMIT Internal Medicine; ATTEND Internal Medicine
DX: E27.40 Unspecified adrenocortical insufficiency (principal); G93.41 Metabolic encephalopathy; N17.9 Acute kidney failure, unspecified; K22.10 Ulcer of esophagus without bleeding; E87.2 Acidosis; I10 Essential (primary) hypertension; Z83.3 Family history of diabetes mellitus; Z88.0 Allergy status to penicillin; I95.9 Hypotension, unspecified; K63.9 Disease of intestine, unspecified; E86.0 Dehydration; Z95.5 Presence of coronary angioplasty implant and graft; K57.30 Diverticulosis of large intestine without perforation or abscess without bleeding; K44.9 Diaphragmatic hernia without obstruction or gangrene; M10.9 Gout, unspecified

== ENCOUNTER 2023-05-12 19:51 | Inpatient (IN) ==
[2023-05-12] MEDS ORDERED: SODIUM CHLORIDE 0.9% 1000ML 1,000 ML IV SCH (20:15)
--- NOTE | 2023-05-12 20:19 | Emergency Department Note ---
Impression & Plan Sepsis, Non-ST elevation CO (NSTEMI), RUCHI (acute kidney injury), Acute hyponatremia, Hypomagnesemia, Acute hyperkalemia ED Provider Note HISTORY OF PRESENT ILLNESS: Patient is a 67-year-old male presenting with generalized weakness and being found down. Patient's son found the patient on the ground of his home today. Son believes he has been down since last night. The patient is unable to provide much in terms of history. He reports "I am just shutting down." He denies any chest pain, shortness of breath, abdominal pain, nausea or vomiting. Per EMS, they were called out for a syncopal episode. They assisted the patient up from the floor and he had another near syncopal episode. He reportedly was very weak and unable to assist with getting up on his own. He was given 800 cc of fluid in route. He was found to be febrile with EMS at 101 Fahrenheit. 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 ROS: as above PHYSICAL EXAM: Constitutional: Patient appears in no acute distress. HENT: Head: Normocephalic and atraumatic. Eyes: EOMI, PERRL Mouth/Throat: Mucous membranes moist. Neck: Trachea midline. Neck supple. Cardiovascular: Tachycardic with regular rhythm. No murmurs, rubs or gallops. Intact distal pulses. Pulmonary/Chest: No respiratory distress. Breath sounds clear and equal bilaterally. No wheezes or rales. Abdominal: BS +. Abdomen soft, no tenderness, rebound or guarding. Musculoskeletal: No edema, tenderness or deformity noted. Skin: Warm and dry. No rash, erythema, pallor or cyanosis Psychiatric: Appropriate mood and affect for situation. Neurological: Alert and keenly responsive. CN II-XII grossly intact, moving all extremities equally and fully. MDM: - Vitals signs showed tachycardia. - History obtained via EMS, given patient's confusion. Patient presents with generalized weakness. Patient was found down by his son earlier today at patient's home. Patient is unable to provide much in terms of history and states he just feels very weak. Denies any chest pain, shortness of breath or a bdominal pain. EMS reports that the patient was unable to assist in helping himself off the floor and was very weak. He was given 800 cc of fluid in route. - Chronic conditions affecting care: Van Wert's disease - Differential diagnoses include, but are not limited to: UTI; pneumonia; ACS; bacteremia; viral syndrome; electrolyte abnormality; dehydration - Order placed for continuous cardiac monitoring. At this time, monitor showed rate of 100 bpm with normal sinus rhythm, per my interpretation. - External medical records reviewed. EMS run sheet reviewed. Patient given 800 cc NS in route. - EKG reviewed by myself showed normal sinus rhythm. Rate tachycardic at 109 bpm. QTc 425. No acute ischemic changes - Laboratory workup interpreted by myself showed leukocytosis (WBC 16.19) with left shift; elevated lactate (2.9); hyponatremia (129); hyperkalemia (K 5.2); elevated anion gap (14); RUCHI (Cr 2.78 - baseline around 1.2); elevated total bilirubin (1.8); elevated troponin (46.2); elevated procalcitonin (7.3); hypomagnesemia (Mg 1.0) - NSTEMI likely type II in setting of sepsis - COVID/flu/RSV negative - CXR negative for pneumonia, per my interpretation. - Blood cultures obtained - Patient given 2L NS in ER. Given IV rocephin and vancomycin for antibiotic coverage. Patient has allergy to penicillin listed. - 4g IV magnesium ordered for electrolyte replacement. - Discussion was had with licensed social worker about patient's case and need for admission. - Hospitalist, Dr. Munoz, consulted for admission - Patient admitted to [facility] service for further evaluation and management. I provided 33 minutes of critical care time to this patient's care outside of billable procedures. ASSESSMENT AND PLAN: Diagnosis: generalized weakness; NSTEMI; sepsis; leukocytosis; hyperkalemia; hyponatremia; RUCHI; hypomagnesemia Plan: admit Past Med/Surg History Social History Smoking Status: Former smoker Preferred Language: Ukrainian Feels Safe at Home: Yes Allergies Allergies Allergy/AdvReac Type Severity Reaction Status Date / Time Penicillins Allergy Unknown CHILDHOOD--REQUIRED Verified 05/12/23 20:51 HOSPITALIZATION Home Meds Home Medications Medication Instructions Recorded Confirmed Unknown Blood Pressure Med 1 tab PO DAILY 04/21/21 05/12/23 prednisone 1 mg tablet See Rx Instructions .Route .COMPLEX 04/21/21 05/12/23 Results & Data (ED) Vital Signs Vital Signs - 24 hr 05/12/23 19:56 05/12/23 20:11 05/12/23 21:00 Temperature 37.2 C Temperature Source Oral Pulse Rate 109 H Pulse Rate [Apical] 102 H Pulse Rate from SpO2 Sensor Respiratory Rate 20 16 Respiratory Depth Normal Blood Pressure 112/65 Blood Pressure [Right Arm] 114/65 Blood Pressure Mean 80 Blood Pressure Mean [Right Arm] 81 Pulse Oximetry 96 95 95 Oxygen Delivery Method Room Air Room Air Room Air Sepsis Recent Fever Within 48 Hours Yes Sepsis New/Unexplained Change in Mental Status Yes Sepsis Action Taken by Nursing Physician Notified 05/12/23 20:11 05/12/23 20:15 05/12/23 20:30 Temperature Temperature Source Pulse Rate 105 H 105 H 102 H Pulse Rate [Apical] Pulse Rate from SpO2 Sensor 105 H 105 H 102 H Respiratory Rate 24 22 20 Respiratory Depth Blood Pressure 114/66 111/68 109/61 Blood Pressure [Right Arm] Blood Pressure Mean 82 82 77 Blood Pressure Mean [Right Arm] Pulse Oximetry 95 94 95 Oxygen Delivery Method Sepsis Recent Fever Within 48 Hours Sepsis New/Unexplained Change in Mental Status Sepsis Action Taken by Nursing 05/12/23 20:45 05/12/23 21:00 05/12/23 21:15 Temperature Temperature Source Pulse Rate 102 H 102 H 102 H Pulse Rate [Apical] Pulse Rate from SpO2 Sensor 102 H 102 H 102 H Respiratory Rate 22 24 22 Respiratory Depth Blood Pressure 111/66 114/65 112/60 Blood Pressure [Right Arm] Blood Pressure Mean 81 81 77 Blood Pressure Mean [Right Arm] Pulse Oximetry 98 94 95 Oxygen Delivery Method Sepsis Recent Fever Within 48 Hours Sepsis New/Unexplained Change in Mental Status Sepsis Action Taken by Nursing 05/12/23 21:30 Temperature Temperature Source Pulse Rate 100 H Pulse Rate [Apical] Pulse Rate from SpO2 Sensor 100 H Respiratory Rate 22 Respiratory Depth Blood Pressure 116/60 Blood Pressure [Right Arm] Blood Pressure Mean 78 Blood Pressure Mean [Right Arm] Pulse Oximetry 93 Oxygen Delivery Method Sepsis Recent Fever Within 48 Hours Sepsis New/Unexplained Change in Mental Status Sepsis Action Taken by Nursing Laboratory Data 05/12/23 20:00 05/12/23 20:00 Lab Results 05/12/23 05/12/23 05/12/23 Range/Units 20:00 20:00 20:00 WBC 16.19 H (4.8-10.8) K/ul RBC 3.85 L (4.70-6.10) M/uL Hgb 12.9 L (14.0-18.0) g/dl Hct 36.8 L (42.0-52.0) % MCV 95.6 (80.0-100.0) fL MCH 33.5 (25.0-34.0) pg MCHC 35.1 (32.0-36.0) g/dL RDW Std Deviation 44.2 (36.4-46.3) fL RDW Coeff of Jonathan 12.7 (11.5-14.5) % Plt Count 155 (130-400) K/uL MPV 12.2 (9.4-12.4) fL Immature Gran % (Auto) 0.9 % Neut % (Auto) 85.6 % Lymph % (Auto) 4.6 % [place] % (Auto) 8.1 % Eos % (Auto) 0.4 % Baso % (Auto) 0.4 % Neut # (Auto) 13.85 H (1.40-6.50) K/uL Lymph # (Auto) 0.75 L (1.2-3.4) K/uL [place] # (Auto) 1.31 H (0.11-0.59) K/uL Eos # (Auto) 0.06 (0-0.50) K/uL Baso # (Auto) 0.07 (0-0.2) K/uL Immature Gran # (Auto) 0.15 (0.01-0.20) K/uL VBG pH (7.36-7.41) VBG pCO2 (38-50) mmHg VBG pO2 mmHg VBG HCO3 mmol/L VBG O2 Saturation % VBG Base Excess mEq/L Sodium 129 L (136-145) mmol/L Potassium 5.2 H (3.5-5.1) mmol/L Chloride 96 L (98-107) mmol/L Carbon Dioxide 19 L (21-32) mmol/L Anion Gap 14 H (3-11) BUN 21 (6-23) mg/dl Creatinine 2.78 H (0.6-1.4) mg/dl Est Cr Clr Drug Dosing 28.1 ml/min Est GFR ( Amer) 25.9 ml/min Est GFR (Non-Af Amer) 22.4 ml/min BUN/Creatinine Ratio 7.6 L (10-20) Glucose 138 H (70-99(Fasting)) mg/dl Lactate (0.4-2.0) mmol/L Calcium 9.2 (8.6-10.3) mg/dl Magnesium 1.0 L (1.7-2.4) mg/dl Total Bilirubin 1.8 H (0.2-1.0) mg/dl Direct Bilirubin 0.8 H (0-0.2) mg/dl AST 69 H (13-39) U/L ALT 31 (7-52) U/L Alkaline Phosphatase 97 (34-104) U/L Total Creatine Kinase 147 (30-223) U/L Troponin I High Sens 46.2 H (0-20) pg/ml Total Protein 7.9 (6.0-8.3) gm/dl Albumin 4.1 (3.4-5.0) gm/dl Procalcitonin 7.30 H (0-0.5) ng/ml SARS-CoV-2 (PCR) (Negative) Influenza Type A (PCR) (Neg) Influenza Type B (PCR) (Neg) RSV (RT-PCR) (Neg) 05/12/23 05/12/23 05/12/23 Range/Units 21:00 21:00 Unknown WBC (4.8-10.8) K/ul RBC (4.70-6.10) M/uL Hgb (14.0-18.0) g/dl Hct (42.0-52.0) % MCV (80.0-100.0) fL MCH (25.0-34.0) pg MCHC (32.0-36.0) g/dL RDW Std Deviation (36.4-46.3) fL RDW Coeff of Jonathan (11.5-14.5) % Plt Count (130-400) K/uL MPV (9.4-12.4) fL Immature Gran % (Auto) % Neut % (Auto) % Lymph % (Auto) % [place] % (Auto) % Eos % (Auto) % Baso % (Auto) % Neut # (Auto) (1.40-6.50) K/uL Lymph # (Auto) (1.2-3.4) K/uL [place] # (Auto) (0.11-0.59) K/uL Eos # (Auto) (0-0.50) K/uL Baso # (Auto) (0-0.2) K/uL Immature Gran # (Auto) (0.01-0.20) K/uL VBG pH 7.38 (7.36-7.41) VBG pCO2 32 L (38-50) mmHg VBG pO2 35 mmHg VBG HCO3 19 mmol/L VBG O2 Saturation < 60.0 % VBG Base Excess -5.3 mEq/L Sodium (136-145) mmol/L Potassium (3.5-5.1) mmol/L Chloride (98-107) mmol/L Carbon Dioxide (21-32) mmol/L Anion Gap (3-11) BUN (6-23) mg/dl Creatinine (0.6-1.4) mg/dl Est Cr Clr Drug Dosing ml/min Est GFR ( Amer) ml/min Est GFR (Non-Af Amer) ml/min BUN/Creatinine Ratio (10-20) Glucose (70-99(Fasting)) mg/dl Lactate 2.9 H* (0.4-2.0) mmol/L Calcium (8.6-10.3) mg/dl Magnesium (1.7-2.4) mg/dl Total Bilirubin (0.2-1.0) mg/dl Direct Bilirubin (0-0.2) mg/dl AST (13-39) U/L ALT (7-52) U/L Alkaline Phosphatase (34-104) U/L Total Creatine Kinase (30-223) U/L Troponin I High Sens (0-20) pg/ml Total Protein (6.0-8.3) gm/dl Albumin (3.4-5.0) gm/dl Procalcitonin (0-0.5) ng/ml SARS-CoV-2 (PCR) NEGATIVE (Negative) Influenza Type A (PCR) Negative (Neg) Influenza Type B (PCR) Negative (Neg) RSV (RT-PCR) Negative (Neg) Administered Medications Discontinued Medications Sodium Chloride (Nss 1000ml) 1,000 mls @ 999 mls/hr IV .Q1H1M CARLA Stop: 05/12/23 21:15 Last Infusion: 05/12/23 21:44 Dose: 0 mls/hr Documented By: Admin: 05/12/23 20:26 Dose: 999 mls/hr Documented By: JENNA Ceftriaxone Sodium (Rocephin) 2,000 mg in 70 mls @ 140 mls/hr IV NOW STA Stop: 05/12/23 22:10 Last Admin: 05/12/23 22:08 Dose: 140 mls/hr Documented By: JENNA Discharge Plan Visit Data Chief Complaint: Fall Stated Complaint: FALL ED Provider: Misti Alvarado Discharge Problem: Sepsis, Non-ST elevation CO (NSTEMI), RUCHI (acute kidney injury), Acute hyponatremia, Hypomagnesemia, Acute hyperkalemia Forms Stand Alone Forms: My [facility] [employer] Prescriptions Prescriptions: No Action prednisone 1 mg tablet See Rx Instructions .ROUTE .COMPLEX Rx Instructions: 1 MG TAB ORALLY; TAKES 2 MG QAM, THEN 1 MG QPM. Unknown Blood Pressure Med 1 tab PO DAILY Rx Instructions: PT STATES "BLOOD PRESSURE MED, ONCE A DAY". UNABLE TO VERIFY OR CONNECT WITH [place] [facility] TO VERIFY MED. Referrals Referrals: Lisa Navarrete PA-C [Primary Care Provider] -
[2023-05-12 21:09] LABS: Base Excess VBG -5.3 mEq/L; HCO3 VBG 19 mmol/L; Oxygen Saturation VBG < 60.0 %; PCO2 VBG 32 mmHg (38-50); PO2 VBG 35 mmHg; pH VBG 7.38 (7.36-7.41)
[2023-05-12 21:09] LABS: Albumin Level 4.1 gm/dl (3.4-5.0); Bilirubin Direct 0.8 mg/dl (0-0.2); Bilirubin,Total 1.8 mg/dl (0.2-1.0); Calcium 9.2 mg/dl (8.6-10.3); Potassium 5.2 mmol/L (3.5-5.1)
[2023-05-12 21:15] LABS: BUN Creatinine Ratio 7.6 (10-20); Creatinine Clr Calc Pharmacy 28.1 ml/min; Est GFR (African American) 25.9 ml/min; Est GFR (Non-African American) 22.4 ml/min; Total Protein 7.9 gm/dl (6.0-8.3)
[2023-05-12 21:17] LABS: Troponin I High Sensitivity 46.2 pg/ml (0-20)
[2023-05-12 21:30] LABS: Influenza A virus by PCR Negative (Neg); Influenza B virus by PCR Negative (Neg); RSV by PCR Negative (Neg); SARS CoV2 RNA(COVID-19) Ceph NEGATIVE (Negative)
[2023-05-12 21:31] LABS: Basophils # (auto) 0.07 K/uL (0-0.2); Basophils % (auto) 0.4 %; Eosinophils # (auto) 0.06 K/uL (0-0.50); Eosinophils % (auto) 0.4 %; Hematocrit (blood only) 36.8 % (42.0-52.0); Hemoglobin 12.9 g/dl (14.0-18.0); Immature Granulocytes # (auto) 0.15 K/uL (0.01-0.20); Immature Granulocytes % (auto) 0.9 %; Lymphocytes # (auto) 0.75 K/uL (1.2-3.4); Lymphocytes % (auto) 4.6 %; Mean Corpuscular Hemoglobin 33.5 pg (25.0-34.0); Mean Corpuscular Hgb Conc 35.1 g/dL (32.0-36.0); Mean Corpuscular Volume 95.6 fL (80.0-100.0); Mean Platelet Volume 12.2 fL (9.4-12.4); Monocytes # (auto) 1.31 K/uL (0.11-0.59); Monocytes % (auto) 8.1 %; Neutrophils # (auto) 13.85 K/uL (1.40-6.50); Neutrophils % (auto) 85.6 %; Platelet Count 155 K/uL (130-400); RDW Coefficient of Variation 12.7 % (11.5-14.5); RDW Standard Deviation 44.2 fL (36.4-46.3); Red Blood Count 3.85 M/uL (4.70-6.10); White Blood Count 16.19 K/ul (4.8-10.8)
[2023-05-12] MEDS ORDERED: VANCOMYCIN HCL 1,750 MG in SODIUM CHLORIDE 0.9% 500 ML IV ONE (21:41)
[2023-05-12] MEDS ORDERED: VANCOMYCIN CONSULT ACTIVE PRN (21:41)
[2023-05-12] MEDS ORDERED: cefTRIAXone SODIUM 2,000 MG/70 ML BAG IV STA (21:41)
[2023-05-12] MEDS ORDERED: SODIUM CHLORIDE 0.9% 1000ML 1,000 ML IV ONE (22:21)
[2023-05-12] MEDS ORDERED: MAG SULFATE 50% 1GM/2ML VIAL IV ONE (22:35)
[2023-05-12 22:44] LABS: Appearance Urine Cloudy (Clear); Bacteria Urine Automated Negative (Negative); Blood Urine 1+ (Negative); Color Urine Orange; Epithelial Cell Urine Auto >30 /lpf (0-5); Glucose Urine UA Negative (Negative); Ketones Urine 1+ (Negative); Leukocyte Esterase Urine Trace (Negative); Nitrite Urine Positive (Negative); Protein Urine 2+ (Negative); Urobilinogen Urine Negative (Negative)
[2023-05-12 22:49] LABS: Bilirubin Urine 2+ (Negative)
[2023-05-12] MEDS ORDERED: DEXAMETHASONE SOD INJ 4 MG/ML VIAL IV STA (22:52)
--- NOTE | 2023-05-12 22:53 | History & Physical Report ---
Date of Service May 12, 2023 Assessment & Plan (1) Adrenal insufficiency: Plan: 67yo Male with PMH adrenal insufficiency, HTN here for fall weakness. Concern Sepsis -WBC 16.19 procal 7.3 lactate 2.4 -Creatine kinase normal -CXR per my read wnl -In ED given rocephin Vancomycin vanc dosage only partially given, canceled given low CrCl -possible source UTI -continue rocephin empirically -trend cbc Adrenal Crisis -given sodium 129 K 5.2 concern adrenal crisis -hold home prednisone for now -ordered hydrocortisone 100mg IV for stress dosing -continue hydrocortisone 50mg q8h, if clinic status improves in 24hr gradually taper dose -trend cmp Hypomagnesia -Mg 1 -In ED given 4g Mag -recheck in am RUCHI -creat 2.78 Elevated Trop -trop 46.2 -recheck pending HTN -hold for now given lack of information of medication Code Status -patient describes DNR/DNI, would like son Jeremias to make decisions if he is unable -on exam there is some suspicion of depressed mood FENa: regular Code Status: DNR/DNI DVT PPX: heparin PT/OT: ordered Dispo: PCU/tele Olive Talley D.O. PGY 3, FCM (2) Sepsis: (3) RUCHI (acute kidney injury): (4) Acute hyponatremia: (5) Hypomagnesemia: (6) Acute hyperkalemia: (7) UTI (urinary tract infection): History of Present Illness Chief Complaint: Fall Weakness Primary Care Provider: Lisa Navarrete 67yo Male with PMH adrenal insufficiency, HTN here for fall weakness. Patient states he was feeling weak over the last 2 days top weak to walk, had a difficult time getting to the bathroom. On the way back from the bathroom he fell and stayed on the floor for 5 hours, hurt both elbows catching himself on the floor. States he initially did not want to come to the hospital however son called 911. He had profuse diarrhea in hospital, denies diarrhea at home. Patient denies any fever SOB nausea pain with urination chest pain abd pain, does not feel his abd has increased distention. States his last dose of medication was this morning, was told to double up his prednisone if he felt sick so followed those instructions for his morning dose. He also uses a blood pressure medication and possibly something with calcium to keep his heart clear. At baseline patient has walking difficulties, able to ambulate in house without assistance but not outside. He lives with his son Jeremias, would like him to make decisions if patient not able to respond. When asked about his code status, patient states if his heart stops to let him go, if he has increased difficulty breathing to make him comfortable, states he is not able to do much at home anyway. Allergies Allergy/AdvReac Type Severity Reaction Status Date / Time Penicillins Allergy Unknown CHILDHOOD--REQUIRED Verified 05/12/23 20:51 HOSPITALIZATION Home Medications Medication Instructions Recorded Confirmed Type Unknown Blood Pressure Med 1 tab PO DAILY 04/21/21 05/12/23 History prednisone 1 mg tablet See Rx Instructions .Route .COMPLEX 04/21/21 05/12/23 History Past Med/Surg History Social History Smoking Status: Never smoker Second Hand Exposure: No; Do You Dip or Chew Tobacco: Yes (1 can/3 days); Hx Alcohol Use: Yes Alcohol type: hard liquor Hx Substance Use: No Preferred Language: Kinyarwanda Communication Ability: Effective Web Pressman Required: No Beliefs That Will Affect Care: None Current Living Situation: Family Current Living Situation Comment: lives with Son Feels Safe at Home: Yes Safety Concerns: Feels Safe At This Time Assistive Devices: Glasses Physical Exam Constitutional: + disheveled (recently had feces cleaned from bedding, legs), cooperative and comfortable Eyes: PERRL, conjunctivae normal, anicteric sclerae ENMT: external ear and nose normal, oropharynx normal Neck: trachea midline, no thyromegaly Respiratory: normal respiratory effort, lungs clear to auscultation Cardiovascular: Rate/Rhythm: regular rate and regular rhythm Heart Sounds: + murmur (systolic) Gastrointestinal (Abdomen): Inspection/Auscultation: + abdomen distended Percussion/Palpation: abdomen soft; abdomen nontender Skin: no rashes, warm and dry Neurologic: CN's II-XI intact bilaterally Results & Data Results & Data Vital Signs (Past 12 Hours) Vital Signs Temp Pulse Pulse Resp BP BP Pulse Ox 05/12/23 20:11 108 H 05/12/23 21:30 100 H 22 116/60 93 05/12/23 21:15 102 H 22 112/60 95 05/12/23 21:00 102 H 24 114/65 94 05/12/23 20:45 102 H 22 111/66 98 05/12/23 20:30 102 H 20 109/61 95 05/12/23 20:15 105 H 22 111/68 94 05/12/23 20:11 105 H 24 114/66 95 05/12/23 21:00 102 H 16 114/65 95 05/12/23 20:11 95 05/12/23 19:56 37.2 C 109 H 20 112/65 96 O2 Del Method 05/12/23 20:11 05/12/23 21:30 05/12/23 21:15 05/12/23 21:00 05/12/23 20:45 05/12/23 20:30 05/12/23 20:15 05/12/23 20:11 05/12/23 21:00 Room Air 05/12/23 20:11 Room Air 05/12/23 19:56 Room Air Supervising Physician Co-Signing Physician Notes attending addendum: I have physically seen this patient, have supervised the medical residents activities, and agree with the H&P unless as otherwise noted. Assessment and Plan: Adrenal insufficiency/question crisis as cause of or result of symptoms Hydrocortisone 100 mg IV now, then 50 mg IV every 8 hours Acute kidney injury/hyponatremia/hypomagnesemia/relative hyperkalemia- Secondary to above and dehydration- Replace electrolytes IV and oral Rehydrate with NSS Recheck laboratories in a.m. Elevated troponin- The patient will be admitted to telemetry for serial cardiac enzymes, serial EKG's, cardiac rhythm monitoring and a 2-D echocardiogram with Dopplers. Likely type II supply/demand mismatch urinary tract infection- Possible source Follow urine culture and sensitivities Continue ceftriaxone begun in the ED Stop vancomycin Remaining orders and notations as noted Resident Activity Tracking Resident Involvement: Resident Care Provided Care Provided: Adult Hospital Medicine
[2023-05-12] MEDS ORDERED: HYDROCORTISONE SOD SUCCINATE 100 MG/2 ML VIAL IV STA (22:58)
[2023-05-12] MEDS: MAGNESIUM SULFATE / D5W 1 GM/100 ML BAG IV SCH (23:25)
[2023-05-13] MEDS: MAGNESIUM SULFATE / D5W 1 GM/100 ML BAG IV SCH ×3 (01:26→04:46)
[2023-05-13 02:16] LABS: Hematocrit (blood only) 33.7 % (42.0-52.0); Mean Corpuscular Hgb Conc 35.6 g/dL (32.0-36.0); Mean Corpuscular Volume 95.5 fL (80.0-100.0); Mean Platelet Volume 11.4 fL (9.4-12.4); Platelet Count 129 K/uL (130-400); RDW Coefficient of Variation 12.8 % (11.5-14.5); RDW Standard Deviation 44.1 fL (36.4-46.3); Red Blood Count 3.53 M/uL (4.70-6.10)
[2023-05-13 02:34] LABS: Albumin Level 3.8 gm/dl (3.4-5.0); BUN Creatinine Ratio 9.3 (10-20); Bilirubin,Total 1.5 mg/dl (0.2-1.0); Calcium 8.5 mg/dl (8.6-10.3); Creatinine Clr Calc Pharmacy 27.5 ml/min; Est GFR (African American) 28.5 ml/min; Est GFR (Non-African American) 24.6 ml/min; Globulin 3.8 gm/dl (2.5-4.0); Magnesium 1.7 mg/dl (1.7-2.4); Potassium 4.7 mmol/L (3.5-5.1); Total Protein 7.6 gm/dl (6.0-8.3)
[2023-05-13] MEDS: HYDROCORTISONE SOD 50 MG in SYRINGE 0 ML IV SCH ×3 (06:10→23:10)
[2023-05-13] MEDS ORDERED: HYDROCORTISONE SOD SUCCINATE 100 MG/2 ML VIAL IV SCH (07:00)
--- NOTE | 2023-05-13 07:04 | Electrocardiogram Report ---
Test Reason : Blood Pressure : / mmHG Vent. Rate : 109 BPM Atrial Rate : 109 BPM P-R Int : 144 ms QRS Dur : 076 ms QT Int : 316 ms P-R-T Axes : 068 075 075 degrees QTc Int : 425 ms Sinus tachycardia Otherwise normal ECG When compared with ECG of 21-APR-2021 16:41, Premature atrial complexes are no longer Present Confirmed by Rigo Bell ([id number]) on 05/13/2023 7:04:10 AM Referred By: REFERRED SELF Confirmed By:Pedrito Bell
--- NOTE | 2023-05-13 08:06 | XRay Report ---
XR chest 1V portable HISTORY: 67 years-old Male Sepsis acute sepsis COMPARISON: 04/21/2021 TECHNIQUE: AP view of the chest FINDINGS: Cardiomediastinal and hilar silhouettes are unchanged. Mild right hemidiaphragmatic elevation. Athero sclerosis of the aorta. No pneumothorax, pleural effusion, airspace consolidation or pulmonary edema. Degenerative changes of the shoulders and spine. Partially imaged metallic screws within the right h umeral head. IMPRESSION: No acute process. ACT 112: Negative or not required by law. The above report was generated using voice recognition software. It may contain grammatical, syntax o r spelling errors. Electronically signed by: Shahzad Root M.D. 05/13/2023 8:05 AM
--- NOTE | 2023-05-13 08:19 | Hospitalist Progress Note ---
Date of Service May 13, 2023 Assessment & Plan (1) Adrenal insufficiency: Plan: 67yo Male with PMH adrenal insufficiency, HTN here for fall weakness. Concern Sepsis -WBC 16.19 procal 7.3 lactate 2.4 -CXR without pneumonia, abnormal ua and lft's -In ED given rocephin Vancomycin vanc dosage only partially given, canceled given low CrCl -possible source UTI -continue rocephin empirically Likely metabolic encephalopathy from urinary tract infection present on adm ission Adrenal Crisis -given sodium 129 K 5.2 concern adrenal crisis -hold home prednisone for now -ordered hydrocortisone 100mg IV for stress dosing -continue hydrocortisone 50mg q8h, if clinic status improves in 24hr gradually taper dose ambulatory dysfunction, patient states not able to go out of his house since February 2023. Did have a fall at that time with loss of consciousness we will check MRI brain the lumbar spine he has no focal neurological cuts no pain with straight leg raising however has weakness of his lower extremities. Hypomagnesia replete RUCHI h/o ckd 3 -creat 2.78 we will give 1 L of saline cautiously with his hyponatremia check random urine sodium Elevated Trop -trop 46.2 no trend maybe renal failure influenced HTN -hold meds with lower blood pressure Code Status -patient describes DNR/DNI, would like son Jeremias to make decisions if he is unable -on exam there is some suspicion of depressed mood Code Status: DNR/DNI DVT PPX: heparin PT/OT: ordered (2) Sepsis: (3) RUCHI (acute kidney injury): (4) Acute hyponatremia: (5) Hypomagnesemia: (6) Acute hyperkalemia: (7) UTI (urinary tract infection): Admission and Anticipated Discharge Date Admission Date: May 12, 2023 Subjective Patient presented after being found down. Has an abnormal urinalysis and laboratories consistent with possible sepsis from urinary source. Prehospital history also is of the patient not been able to walk appropriately since February going out of his house for fear of falling had a substantial fall in his yard with loss of consciousness sometime in February 2023. no focal neurological deficits but weakness of his lower extremities Physical Exam Physical Exam: patient awake alert appropriate. Cardiac exam is regular without murmurs lungs are clear without wheezes or crackles abdomen is soft there is no right upper quadrant or left lower quadrant tenderness guarding or rebound normal active bowel sounds neurologically he is awake alert appropriate oriented x3 manager of training strength is equal 4/5 bilaterally lower extremity strength is slightly less probably 4/5 bilaterally can lift against gravity difficult to elicit patellar reflexes even with distraction sensations intact bilaterally to lower extremities Results & Data Results & Data Vital Signs (Past 12 Hours) Vital Signs Temp Pulse Pulse Pulse Resp BP BP 05/13/23 08:00 97.2 F L 91 H 20 105/64 05/13/23 07:07 82 05/13/23 03:24 97.3 F L 85 16 136/66 05/13/23 00:00 98.1 F 92 H 19 130/67 05/13/23 00:00 90 05/12/23 23:26 92 H 16 116/73 05/12/23 21:30 100 H 22 116/60 05/12/23 21:15 102 H 22 112/60 05/12/23 21:00 102 H 24 114/65 05/12/23 20:45 102 H 22 111/66 05/12/23 20:30 102 H 20 109/61 05/12/23 21:00 102 H 16 114/65 Pulse Ox O2 Del Method 05/13/23 08:00 91 Room Air 05/13/23 07:07 05/13/23 03:24 96 Room Air 05/13/23 00:00 96 Room Air 05/13/23 00:00 05/12/23 23:26 94 Room Air 05/12/23 21:30 93 05/12/23 21:15 95 05/12/23 21:00 94 05/12/23 20:45 98 05/12/23 20:30 95 05/12/23 21:00 95 Room Air Laboratory Results reviewed CBC reviewed chemistry PG Care Time/CCT Total # of Minutes Spent Total Time Spent with Patient: Total time spent is greater than 50% in coordination of care (as documented) at patient's floor/unit and/or counseling patient: Coding Level of Care Code 12691 SUB INP/OBS CARE 3/50MIN Diagnoses Adrenal insufficiency E27.40 Sepsis A41.9 RUCHI (acute kidney injury) N17.9 Acute hyponatremia E87.1 Hypomagnesemia E83.42 Acute hyperkalemia E87.5 UTI (urinary tract infection) N39.0
[2023-05-13] MEDS: HEPARIN SOD 5,000 UNIT/0.5 ML VIAL SQ SCH ×2 (08:38→19:57)
[2023-05-13] MEDS: cefTRIAXone SODIUM 2,000 MG in DEXTROSE 5% 50 ML IV SCH (08:39)
[2023-05-13] MEDS ORDERED: SODIUM CHLORIDE 0.9% 1000ML 1,000 ML IV SCH (13:00)
--- NOTE | 2023-05-13 15:50 | Magnetic Resonance Report ---
MR brain wo con HISTORY: 67 years-old Male eval for CVA acute stroke like symptoms COMPARISON: None TECHNIQUE: Multiplanar multisequence MRI of the brain was obtained without the use of IV contrast. FINDINGS: No restricted diffusion. Midline structures are unremarkable. Partially empty sella. No acute intracr anial hemorrhage, midline shift, abnormal extra-axial collection, hydrocephalus or intracranial mass. Cerebral venous sinuses appear patent. Loss of the normal flow void involving the imaged portions of the right ICA. Skull, orbits and soft tissues are unremarkable. Trace mastoid effusions. Mild involutional changes with mild T2/FLAIR hyperintense foci throughout the white matter. IMPRESSION: 1. No acute intracranial abnormality. No acute or subacute infarct. 2. Involutional changes with suggestion of mild chronic microvascular ischemic disease. 3. Age-indeterminate occlusion of the imaged right ICA, favored to be chronic. ACT 112: Negative or not required by law. The above report was generated using voice recognition software. It may contain grammatical, syntax o r spelling errors. Electronically signed by: Shahzad Root M.D. 05/13/2023 3:48 PM
[2023-05-13] MEDS: NICOTINE 21 MG/24 HR TDSY TD SCH (16:29)
[2023-05-13 18:41] LABS: A calco-baum cmplx NotReported Not Detected (NotDetected); Bact fragilis Not Reported Not Detected (NotDetected); C auris Not Reported Not Detected (NotDetected); Calbicans Not Reported Not Detected (NotDetected); Candida glabrata Not Reported Not Detected (NotDetected); Candida krusei Not Reported Not Detected (NotDetected); Cneoformans/gatti Not Reported Not Detected (NotDetected); Cparapsilosis Not Reported Not Detected (NotDetected); Ctropicalis Not Reported Not Detected (NotDetected); E cloacae compx Not Reported Not Detected (NotDetected); Efaecalis Not Reported Not Detected (NotDetected); Efaecium Not Reported Not Detected (NotDetected); Enterobacterales Not Reported Not Detected (NotDetected); Escherichia coli Not Reported Not Detected (NotDetected); H influenzae Not Reported Not Detected (NotDetected); K aerogenes Not Reported Not Detected (NotDetected); Koxytoca Not Reported Not Detected (NotDetected); Kpneumoniae grp Not Reported Not Detected (NotDetected); Lmonocyt Not Reported Not Detected (NotDetected); N meningitidis Not Reported Not Detected (NotDetected); P aeruginosa Not Reported Not Detected (NotDetected); Proteus spp Not Reported Not Detected (NotDetected); Salmonella spp Not Reported Not Detected (NotDetected); Smarcescens Not Reported Not Detected (NotDetected); Staph lugdunensis Not Reported Not Detected (NotDetected); Staph spp. Not Reported Not Detected (NotDetected); Staphaureus Not Reported Not Detected (NotDetected); Staphepi Not Reported Not Detected (NotDetected); Stenmaltophilia Not Reported Not Detected (NotDetected); Strep agal(GrpB) Not Reported Not Detected (NotDetected); Strep pneum Not Reported Not Detected (NotDetected); Strep pyog (GrpA) Not Reported Not Detected (NotDetected); Strep spp Not Reported Not Detected (NotDetected)
--- NOTE | 2023-05-13 19:33 | Billing Data ---
Date of Service May 13, 2023 Coding Level of Care Code 25827 INT INP/OBS CARE
--- NOTE | 2023-05-13 20:07 | Magnetic Resonance Report ---
MR lumbar spine wo con CLINICAL HISTORY: 67 years-old Male with Pt cant walk with b/l leg weakness. Chronic low back pain w ith prior fall. Lower extremity weakness. COMPARISON: 12/25/2012 TECHNIQUE: Multiplanar, multi sequence MRI of the lumbar spine was performed without intravenous cont rast. FINDINGS: Motion degraded exam. [employer] localizer images demonstrate no significant extraspinal abnorma lity. Colonic diverticulosis. Nonspecific trace free pelvic fluid. Conus medullaris terminates at T12 -L1. Normal signal within the imaged thoracic spinal cord and cauda equina. Epidural lipomatosis of t he mid to lower lumbar spine is most pronounced posteriorly. Chronic-appearing superior endplate L4 S chmorl's node. Mild marrow edema involving the inferior aspect of the L3 endplate is favored to be de generative. L1-L2: Moderate disc space narrowing with mild spondylotic spurring, small circumferential disc bulg e, ligamentum flavum thickening with mild facet arthrosis. Central canal and left neuroforamen are pa tent. Mild right neural foraminal narrowing. L2-L3: Mild spondylitic spurring and facet arthrosis with ligamentum flavum thickening. No central c anal or neural foraminal stenosis. L3-L4: Mild intervertebral disc space narrowing and spondylotic spurring with small circumferential renal disc bulge and posterior disc osteophyte complex. Moderate facet arthrosis with ligamentum flav um thickening. Moderate central canal stenosis with AP dimension of the thecal sac measuring 7 mm. Mi [id number] bilateral foraminal narrowing. L4-L5: Mild spondylotic spurring with tiny posterior annular disc bulge. Ligamentum flavum thickenin g with moderate facet arthrosis. Mild central canal stenosis, AP dimension of the thecal sac measurin g 9 mm. Mild right with mild/moderate left neural foraminal narrowing. L5-S1: Mild spondylotic spurring with tiny posterior disc osteophyte complex. Ligamentum flavum thic kening with mild to moderate facet arthrosis. Epidural lipomatosis resolves in near complete effaceme nt of the thecal sac. The neural foramen are patent. IMPRESSION: 1. Motion degraded exam. 2. Discogenic degeneration with spondylotic spurring and facet arthrosis as above. 3. Epidural lipomatosis. 4. Nonspecific small amount of free pelvic fluid. 5. Colonic diverticulosis. ACT 112: Negative or not required by law. The above report was generated using voice recognition software. It may contain grammatical, syntax o r spelling errors. Electronically signed by: Shahzad Root M.D. 05/13/2023 8:05 PM
[2023-05-14 06:23] LABS: Hematocrit (blood only) 30.6 % (42.0-52.0); Mean Corpuscular Hemoglobin 34.1 pg (25.0-34.0); Mean Corpuscular Hgb Conc 35.9 g/dL (32.0-36.0); Mean Corpuscular Volume 94.7 fL (80.0-100.0); Mean Platelet Volume 10.7 fL (9.4-12.4); Platelet Count 117 K/uL (130-400); RDW Coefficient of Variation 12.8 % (11.5-14.5); RDW Standard Deviation 44.3 fL (36.4-46.3); Red Blood Count 3.23 M/uL (4.70-6.10); White Blood Count 12.66 K/ul (4.8-10.8)
[2023-05-14 06:41] LABS: Calcium 8.4 mg/dl (8.6-10.3); Creatinine Clr Calc Pharmacy 40.4 ml/min; Est GFR (African American) 45.4 ml/min; Est GFR (Non-African American) 39.1 ml/min; Magnesium 2.1 mg/dl (1.7-2.4); Potassium 3.8 mmol/L (3.5-5.1)
[2023-05-14] MEDS ORDERED: VANCOMYCIN CONSULT ACTIVE PRN (07:33)
[2023-05-14] MEDS: HYDROCORTISONE SOD 50 MG in SYRINGE 0 ML IV SCH ×3 (08:03→23:33)
[2023-05-14] MEDS: NICOTINE 21 MG/24 HR TDSY TD SCH (08:05)
[2023-05-14] MEDS: HEPARIN SOD 5,000 UNIT/0.5 ML VIAL SQ SCH ×2 (08:11→21:38)
[2023-05-14] MEDS ORDERED: VANCOMYCIN HCL 1,500 MG in SODIUM CHLORIDE 0.9% 500 ML IV ONE (08:30)
[2023-05-14] MEDS: cefTRIAXone SODIUM 2,000 MG in DEXTROSE 5% 50 ML IV SCH (10:24)
--- NOTE | 2023-05-14 12:39 | Pharmacy Report ---
Pharmacy PK ABX Note - Date of Service May 14, 2023 - Assessment and Plan Assessment 67 year old M receiving Rocephin and vancomycin for treatment of bacteremia. Pertinent microbiologic data includes: blood culture growing GP cocci (in both anaerobic bottles but per discussion with lab do not appear to be an anaerobic agent). Day # 1 of antimicrobial therapy. * Patient's kidney function is improving from day of admission --> serum creatinines are as follows 2.78 --> 2.57 --> 1.75 mg/dL. * Repeat blood cultures have been drawn today. Plan Vancomycin * Loading dose: 1500 mg IV x 1 (patient received 1750 mg IV on 05/12/23 which is about 36 hours ago). * Due to kidney function, will dose based upon random levels * Regimen is predicted to achieve target AUC/OSCAR of 400-600 mg/L.hr * Random level ordered for: 05/15/23 Pharmacy will continue to follow and will adjust dose/frequency as necessary. Thank you. Pharmacy has transitioned to AUC monitoring for vancomycin. AUC/SOCAR is the preferred PK/PD target and is associated with decreased risk of nephrotoxicity compared to traditional trough targets.
--- NOTE | 2023-05-14 13:14 | Hospitalist Progress Note ---
Date of Service May 14, 2023 Assessment & Plan (1) Adrenal insufficiency: Plan: 67yo Male with PMH adrenal insufficiency, HTN here for fall weakness. Concern Sepsis, gram positive chains in 2/4 blood cx, esr 88 -WBC 16.19 procal 7.3 lactate 2.4 -In ED given Rocephin Vancomycin vanc dosage only partially given, canceled given low CrCl Trans thoracic Echo without vegetations - periodontal abscess confirmed on CT blood cultures are alpha strep, on Ceftriaxone, to OR 05/15/23 Adrenal Crisis -given sodium 129 K 5.2 concern adrenal crisis -hold home prednisone for now -ordered hydrocortisone 100mg IV for stress dosing -placed on hydrocortisone dosing po Hypomagnesia -replete RUCHI, resolved with CKD 3 Elevated Trop -trop 46.2 no significant trend consider demand ischemia HTN -will start amlodipine Code Status -patient describes DNR/DNI, would like son Jeremias to make decisions if he is unable -on exam there is some suspicion of depressed mood Code Status: DNR/DNI DVT PPX: heparin (2) Sepsis: (3) RUCHI (acute kidney injury): (4) Acute hyponatremia: (5) Hypomagnesemia: (6) Acute hyperkalemia: (7) UTI (urinary tract infection): Admission and Anticipated Discharge Date Admission Date: May 12, 2023 Subjective Pt is with Gr+ cocci in chains seen on 2 of 4 blood cultures, does have tooth issue as possible source, initial urine cultures non revealing Ct confirms periodontal infection found to have Prehospital history also is of the patient not been able to walk appropriately since February going out of his house for fear of falling had a substantial fall in his yard with loss of consciousness sometime in February 2023. no focal neurological deficits but weakness of his lower extremities, PT OT eval did do will Physical Exam Physical Exam: patient awake alert appropriate. right upper molar is loosened Cardiac exam is regular without murmurs lungs are clear without wheezes or crackles abdomen is soft there is no right upper quadrant or left lower quadrant tenderness guarding or rebound normal active bowel sounds neurologically he is awake alert appropriate oriented x3 Results & Data Results & Data Vital Signs (Past 12 Hours) Vital Signs Temp Pulse Pulse Resp BP Pulse Ox O2 Del Method 05/14/23 07:30 Room Air 05/14/23 12:39 97.7 F 78 16 171/81 H 98 Room Air 07/10/23 07:50 97.9 F 76 18 156/79 H 94 Room Air 05/14/23 07:23 72 05/14/23 04:14 97.9 F 70 16 162/74 H 97 Room Air Laboratory Results review cbc review chemistry review ESR PG Care Time/CCT Total # of Minutes Spent Total Time Spent with Patient: Total time spent is greater than 50% in coordination of care (as documented) at patient's floor/unit and/or counseling patient: Coding Level of Care Code 55418 SUB INP/OBS CARE 3/50MIN Diagnoses Adrenal insufficiency E27.40 Sepsis A41.9 RUCHI (acute kidney injury) N17.9 Acute hyponatremia E87.1 Hypomagnesemia E83.42 Acute hyperkalemia E87.5 UTI (urinary tract infection) N39.0
--- NOTE | 2023-05-14 13:40 | XCELERA ---
[id number]
[2023-05-14] MEDS ORDERED: amLODIPine BESYLATE 5 MG TAB PO ONE (16:45)
--- NOTE | 2023-05-14 17:39 | CT Scan Report ---
CT SCAN OF THE FACIAL BONES WITHOUT IV CONTRAST CLINICAL HISTORY: Periodontal disease. Possible abscess. COMPARISON STUDY: No priors. TECHNIQUE: High-resolution CT scan of the facial bones is performed. Images are reviewed in the axia l, sagittal, and coronal planes. IV contrast was not administered for this examination. Note that th e examination is significantly suboptimal without IV contrast. A dose lowering technique was utilized adhering to the principles of ALARA. FINDINGS: The skeletal structures are well mineralized. There is no evidence of facial bone fracture. The bony orbits are intact and the orbital contents are within normal limits. The zygomatic arches, nasal bones, and pterygoid plates are preserved. The maxilla and mandible are intact. There are no la yering blood products within the paranasal sinuses. There is a left mastoid effusion. The right masto id air cells are well pneumatized. The visualized calvarium and upper cervical spine are maintained. Partially imaged brain parenchyma is within normal limits noting age-related involutional change. Filomena luation of the oral cavity is degraded by streak artifact from dental amalgam. Numerous dental caries are identified. There is a large periapical lucency identified involving the right maxillary premola r seen on axial image #261. There are small foci of gas within an overlying this periapical lucency. There is minimal overlying soft tissue infiltration which likely represents cellulitis. No organized fluid collection is seen to suggest abscess. No additional periapical lucencies are seen. There is at herosclerotic calcification of the carotid bulbs. IMPRESSION: 1. There is a large periapical lucency involving a right maxillary premolar. There are foci of gas wi thin and superficial to this periapical lucency, likely representing infection. There is likely mild mild overlying cellulitis. Follow-up with dentistry is recommended. 2. No organized fluid collection is seen to suggest abscess on this unenhanced examination. 3. Numerous additional dental caries are noted. ACT 112: Negative or not required by law. Electronically signed by: Rashi Sutton M.D. 05/14/2023 5:38 PM
[2023-05-14] MEDS ORDERED: MELATONIN 3 MG TAB PO PRN (19:11)
[2023-05-15 06:35] LABS: Hematocrit (blood only) 33.4 % (42.0-52.0); Hemoglobin 11.6 g/dl (14.0-18.0); Mean Corpuscular Hemoglobin 33.6 pg (25.0-34.0); Mean Corpuscular Hgb Conc 34.7 g/dL (32.0-36.0); Mean Corpuscular Volume 96.8 fL (80.0-100.0); Mean Platelet Volume 11.1 fL (9.4-12.4); Platelet Count 126 K/uL (130-400); RDW Coefficient of Variation 12.9 % (11.5-14.5); RDW Standard Deviation 45.1 fL (36.4-46.3); Red Blood Count 3.45 M/uL (4.70-6.10)
[2023-05-15 06:53] LABS: BUN Creatinine Ratio 29.9 (10-20); Calcium 8.6 mg/dl (8.6-10.3); Creatinine Clr Calc Pharmacy 60.4 ml/min; Est GFR (African American) 73.8 ml/min; Est GFR (Non-African American) 63.7 ml/min; Magnesium 1.8 mg/dl (1.7-2.4); Potassium 3.6 mmol/L (3.5-5.1)
[2023-05-15] MEDS ORDERED: VANCOMYCIN HCL 1,000 MG in SODIUM CHLORIDE 0.9% 250 ML IV SCH (08:00)
[2023-05-15] MEDS: NICOTINE 21 MG/24 HR TDSY TD SCH (08:48)
[2023-05-15] MEDS: amLODIPine BESYLATE 5 MG TAB PO SCH (08:50)
[2023-05-15] MEDS: HEPARIN SOD 5,000 UNIT/0.5 ML VIAL SQ SCH (08:50)
[2023-05-15] MEDS: HYDROCORTISONE 10 MG TAB PO SCH ×2 (08:50→14:01)
[2023-05-15] MEDS: cefTRIAXone SODIUM 2,000 MG in DEXTROSE 5% 50 ML IV SCH (10:44)
--- NOTE | 2023-05-15 10:44 | Pharmacy Report ---
Pharmacy PK ABX Note - Date of Service May 15, 2023 - Assessment and Plan Assessment 05/15: * Day #2 of antimicrobial therapy. Remains on Ceftriaxone plus Vancomycin. * Remains afebrile. Leukocytosis continues to improve (16k-->15.8k-->12.7k-->10.9k). SCr continues to improve 2.78 --> 2.57 --> 1.75 --> 1.17 mg/dL. * 05/12/23 blood cultures are growing gram positive cocci in chains, alpha strep not pneumo/enterococcus, and gram positive cocci. Will await speciation of other gram positive cocci prior to de-escalating abx. Repeat blood cultures from 05/14/23 pending. 05/14: 67 year old M receiving Rocephin and vancomycin for treatment of bacteremia. Pertinent microbiologic data includes: blood culture growing GP cocci (in both anaerobic bottles but per discussion with lab do not appear to be an anaerobic agent). Day # 1 of antimicrobial therapy. * Patient's kidney function is improving from day of admission --> serum creatinines are as follows 2.78 --> 2.57 --> 1.75 mg/dL. * Repeat blood cultures have been drawn today. Plan Vancomycin * Currently dosing by level so patient received 1500 mg IV x 1 on 05/14/23 at 0827. * Random level obtained 05/15/23 resulted as 11.2 mcg/mL. * Maintenance dose: 1000 mg IV every 12 hours. Predicted AUC at steady state: 577 mg/L.hr * Repeat random level ordered for: 05/16/23 Pharmacy will continue to follow and will adjust dose/frequency as necessary. Thank you. Pharmacy has transitioned to AUC monitoring for vancomycin. AUC/OSCAR is the preferred PK/PD target and is associated with decreased risk of nephrotoxicity compared to traditional trough targets.
--- NOTE | 2023-05-15 17:24 | Hospitalist Progress Note ---
Date of Service May 15, 2023 Assessment & Plan (1) Adrenal insufficiency: Plan: 67yo Male with PMH adrenal insufficiency, HTN here for fall weakness. Concern Sepsis, gram positive chains in 2/4 blood cx, esr 88 -WBC 16.19 procal 7.3 lactate 2.4 -In ED given Rocephin Vancomycin vanc dosage only partially given, canceled given low CrCl Trans thoracic Echo without vegetations - periodontal abscess confirmed on CT blood cultures are alpha strep, on Ceftriaxone, to OR 05/15/23 Adrenal Crisis -given sodium 129 K 5.2 concern adrenal crisis -hold home prednisone for now -ordered hydrocortisone 100mg IV for stress dosing -placed on hydrocortisone dosing po Hypomagnesia -replete RUCHI, resolved with CKD 3 Elevated Trop -trop 46.2 no significant trend consider demand ischemia HTN -will start amlodipine Code Status -patient describes DNR/DNI, would like son Jeremias to make decisions if he is unable -on exam there is some suspicion of depressed mood Code Status: DNR/DNI DVT PPX: heparin (2) Sepsis: (3) RUCHI (acute kidney injury): (4) Acute hyponatremia: (5) Hypomagnesemia: (6) Acute hyperkalemia: (7) UTI (urinary tract infection): Admission and Anticipated Discharge Date Admission Date: May 12, 2023 Subjective Pt is with Gr+ cocci in chains seen on 2 of 4 blood cultures, does have tooth issue as possible source, initial urine cultures non revealing Ct confirms periodontal infection found to have Prehospital history also is of the patient not been able to walk appropriately since February going out of his house for fear of falling had a substantial fall in his yard with loss of consciousness sometime in February 2023. no focal neurological deficits but weakness of his lower extremities, PT OT eval did do will Physical Exam Physical Exam: patient awake alert appropriate. right upper molar is loosened Cardiac exam is regular without murmurs lungs are clear without wheezes or crackles abdomen is soft there is no right upper quadrant or left lower quadrant tenderness guarding or rebound normal active bowel sounds neurologically he is awake alert appropriate oriented x3 Results & Data Results & Data Vital Signs (Past 12 Hours) Vital Signs Temp Pulse Pulse Resp BP Pulse Ox O2 Del Method 05/15/23 15:44 98.1 F 63 18 171/80 H 98 Room Air 05/15/23 15:22 67 07/11/23 11:20 98.4 F 61 18 172/80 H 96 Room Air 05/15/23 08:00 Room Air 05/15/23 08:00 66 05/15/23 08:12 98.2 F 60 18 171/81 H 96 Room Air PG Care Time/CCT Total # of Minutes Spent Total Time Spent with Patient: Total time spent is greater than 50% in coordination of care (as documented) at patient's floor/unit and/or counseling patient: Coding Level of Care Code 99898 SUB INP/OBS CARE 2/35MIN Diagnoses Adrenal insufficiency E27.40 Sepsis A41.9 RUCHI (acute kidney injury) N17.9 Acute hyponatremia E87.1 Hypomagnesemia E83.42 Acute hyperkalemia E87.5 UTI (urinary tract infection) N39.0
--- NOTE | 2023-05-15 17:25 | Anesthesiology Consultation ---
Date of Service May 15, 2023 Assessment & Plan (1) Encounter for pre-operative examination: Chart Review Chart Review: Acceptable Risk for Surgery and Patient NOT seen in Pre Admission Testing Consults Requested none History Surgery Operation Date: 05/15/23 18:30 Proposed Procedures p Complete Bony Impaction - Estevan Kurtis Munoz, DMD Height/Weight Height: 5 ft 9 in Weight: 80.7 kg Allergies Allergy/AdvReac Type Severity Reaction Status Date / Time Penicillins Allergy Unknown CHILDHOOD--REQUIRED Verified 05/12/23 20:51 HOSPITALIZATION Medications Home Medications Medication Instructions Recorded Confirmed Last Taken Unknown Blood Pressure Med 1 tab PO DAILY 04/21/21 05/12/23 05/12/23 prednisone 1 mg tablet See Rx Instructions .Route .COMPLEX 04/21/21 05/12/23 04/21/21 08:00 Active Medications Generic Name Dose Route Start Last Admin Trade Name Freq PRN Reason Stop Dose Admin Amlodipine Besylate 5 mg 05/15/23 09:00 05/15/23 08:50 Amlodipine Besylate 5 Mg Tab PO 06/14/23 08:59 5 mg QAM CARLA Administration Heparin Sodium (Porcine) 5,000 units 05/13/23 09:00 05/15/23 08:50 Heparin Sod 5,000 Unit/0.5 Ml Vial SQ 06/12/23 08:59 5,000 units Q12 CARLA Administration Hydrocortisone 15 mg 05/15/23 09:00 05/15/23 08:50 Hydrocortisone 10 Mg Tab PO 06/14/23 08:59 15 mg QAM CARLA Administration Hydrocortisone 10 mg 05/15/23 13:00 05/15/23 14:01 Hydrocortisone 10 Mg Tab PO 06/14/23 12:59 10 mg Q24H CARLA Administration Ceftriaxone Sodium 2,000 mg/ 70 mls @ 100 mls/hr 05/13/23 09:30 05/15/23 11:48 Dextrose IV 05/23/23 09:29 Infused Q24H CARLA Infusion Protocol Miscellaneous 1 each 05/14/23 08:59 05/15/23 08:50 Remove Nicoderm Patch N/A 06/13/23 08:58 1 each DAILY@0859 CARLA Administration Nicotine 21 mg 05/13/23 14:15 05/15/23 08:48 Nicotine 21 Mg/24 Hr Tdsy TD 06/12/23 14:14 21 mg QAM CARLA Administration Social History Smoking Status: Never smoker tobacco type: smokeless tobacco Do You Dip or Chew Tobacco: Yes (1 can/3 days) Hx Alcohol Use: Yes Alcohol type: hard liquor alcohol intake frequency: 0-2 drinks per day Hx Substance Use: No Physical Exam Vital Signs Last Vital Signs Temp 98.1 F 05/15/23 15:44 Pulse 63 05/15/23 15:44 Resp 18 05/15/23 15:44 BP 171/80 H 05/15/23 15:44 Pulse Ox 98 05/15/23 15:44 O2 Del Method Room Air 05/15/23 15:44 Testing Laboratory Results 05/15/23 05:40 05/15/23 05:40 Urine Color [place] 05/12/23 21:50 Urine Appearance Cloudy (Clear) A 05/12/23 21:50 Urine pH 5.0 (4.5-7.5) 05/12/23 21:50 Ur Specific [place] 1.020 (1.000-1.030) 05/12/23 21:50 Urine Protein 2+ (Negative) H 05/12/23 21:50 Urine Glucose (UA) Negative (Negative) 05/12/23 21:50 Urine Ketones 1+ (Negative) H 05/12/23 21:50 Urine Nitrite Positive (Negative) A 05/12/23 21:50 Ur Leukocyte Esterase Trace (Negative) H 05/12/23 21:50 Urine WBC (Auto) 1-5 /hpf (0-5) 05/12/23 21:50 Urine RBC (Auto) 5-10 /hpf (0-4) H 05/12/23 21:50 U Hyaline Cast (Auto) 10-30 /lpf (0-5) H 05/12/23 21:50 U Epithel Cells (Auto) >30 /lpf (0-5) H 05/12/23 21:50 Urine Bacteria (Auto) Negative (Negative) 05/12/23 21:50 05/12/23 21:50 Urine Culture - Final Urine,Clean Catch No growth - less than 1,000 colonies/mL. 05/12/23 21:01 Aerobic Blood Culture - Preliminary Blood No growth in Aerobic bottle after 48 hours. Anaerobic Blood Culture - Preliminary Gram positive cocci in chains 05/12/23 20:00 Aerobic Blood Culture - Preliminary Blood No growth in Aerobic bottle after 48 hours. Anaerobic Blood Culture - Preliminary Alpha strep not S.pne/enteroco Gram positive cocci 05/14/23 08:58 Aerobic Blood Culture - Preliminary Blood No growth in Aerobic bottle after 24 hours. Anaerobic Blood Culture - Preliminary No growth in Anaerobic bottle after 24 hours. 05/14/23 08:34 Aerobic Blood Culture - Preliminary Blood No growth in Aerobic bottle after 24 hours. Anaerobic Blood Culture - Preliminary No growth in Anaerobic bottle after 24 hours.
--- NOTE | 2023-05-15 17:42 | Oral/Maxillofacial Consult ---
Date of Consultation May 15, 2023 Assessment & Plan (1) Abscess of pulp of tooth: (2) Facial infection: (3) Swollen gums: History of Present Illness Attending Physician: Gabo Stroud MD History of Present Illness found to have Prehospital history also is of the patient not been able to walk appropriately since February going out of his house for fear of falling had a substantial fall in his yard with loss of consciousness sometime in February 2023. no focal neurological deficits but weakness of his lower extremities, PT OT eval did do will Adrenal crisis: found to have Prehospital history also is of the patient not been able to walk appropriately since February going out of his house for fear of falling had a substantial fall in his yard with loss of consciousness sometime in February 2023. No focal neurological deficits but weakness of his lower extremities. Dental exam fractured decayed # 5 painful to touch and pain at apex. Gingival tissue somewhat swollen secondary to apex infection. Dental care is poor No other dental issues of concern. No dental fistula other then # 5 area. TMJ all wnl I evaluated he CT scan noted the dental infection from # 5 No sinus issues or other areas of infection noted. Given the CT scan and clinical pictures this could be a potential source of his infection NPO 10 hours. patient awake alert appropriate sitting in bedside chair I reviewed the treatment plan Pt is with Gr+ cocci in chains seen on 2 of 4 blood cultures, does have tooth issue as possible source. Ct confirms periodontal infection Head/Neck exam: Neck is supple, FROM, Able to extend and flex neck w/o difficulty, no masses, no abnormalities, no airway issues. Treatment Plan: Set up with general anesthesia in hospital due to complexity of the procedure and current medical status Potential source of infection given current blood cultures. I reviewed the treatment plan and consent with the patient Understanding was expressed. Time was given for questions regarding the surgery, risks and post op care. Discussed alternative to treatment--procedure as planned, Do not do surgery The following teeth are decayed and fractured and removal is indicated [place]:# 5 abscessed and painful Risks discussed: Bleeding,Pain,swelling,infection, dry socket, delayed healing, nerve injury to face,lips,tongue,chin area which could be permanent (rare). TMJ, jaw stiffness, change in bite (rare), ear pain (referred). Sinus problems like fistula or infection. Need to leave a small root fragment in place to avoid injury to nerve or sinus. Relationship of the tooth to sinus As per medical notes: Cardiac exam is regular without murmurs lungs are clear without wheezes or crackles abdomen is soft there is no right upper quadrant or left lower quadrant tenderness guarding or rebound normal active bowel sounds neurologically he is awake alert appropriate oriented x3 OK for OR tonight Allergies Allergy/AdvReac Type Severity Reaction Status Date / Time Penicillins Allergy Unknown CHILDHOOD--REQUIRED Verified 05/12/23 20:51 HOSPITALIZATION Home Medications Medication Instructions Recorded Confirmed Type Unknown Blood Pressure Med 1 tab PO DAILY 04/21/21 05/12/23 History prednisone 1 mg tablet See Rx Instructions .Route .COMPLEX 04/21/21 05/12/23 History Patient History Social History Smoking Status: Never smoker Second Hand Exposure: No; Do You Dip or Chew Tobacco: Yes (1 can/3 days); Hx Alcohol Use: Yes Alcohol type: hard liquor Hx Substance Use: No Preferred Language: Upper Sorbian Communication Ability: Effective 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 Beliefs That Will Affect Care: None Current Living Situation: Family Current Living Situation Comment: lives with Son Feels Safe at Home: Yes Safety Concerns: Feels Safe At This Time Assistive Devices: None Results & Data Vital Signs (Past 12 Hours) Vital Signs Temp Pulse Pulse Resp BP Pulse Ox O2 Del Method 05/15/23 15:44 36.7 C 63 18 171/80 H 98 Room Air 05/15/23 15:22 67 05/15/23 11:20 36.9 C 61 18 172/80 H 96 Room Air 05/15/23 08:00 Room Air 05/15/23 08:00 66 05/15/23 08:12 36.8 C 60 18 171/81 H 96 Room Air PG Care Time/CCT Total # of Minutes Spent Total Time Spent with Patient: Total time spent is greater than 50% in coordination of care (as documented) at patient's floor/unit and/or counseling patient: Coding Level of Care Code 54615 INT INP/OBS CARE MIN Diagnoses Abscess of pulp of tooth K04.01 Facial infection L08.9 Swollen gums R22.0
[2023-05-15] MEDS ORDERED: MIDAZOLAM HCL 1 MG/ML 2ML VIAL ONE (17:46)
[2023-05-15] MEDS ORDERED: fentaNYL citrate PF 100 MCG/2 ML VIAL ONE (17:46)
[2023-05-15] MEDS ORDERED: BUPIVACAINE/EPINEPHRINE 0.5% 1:200,000 1.8 ML CARP ONE (17:51)
[2023-05-15] MEDS ORDERED: ONDANSETRON INJ 2 MG/ML 2 ML VIAL IV PRN (17:57)
[2023-05-15] MEDS ORDERED: ePHEDrine sulfate 50 MG/ML AMP IV PRN (17:57)
[2023-05-15] MEDS ORDERED: ATROPINE SULFATE 0.1 MG/ML 10ML SYR IV PRN (17:57)
[2023-05-15] MEDS ORDERED: fentaNYL citrate PF 100 MCG/2 ML VIAL IV PRN (17:57)
[2023-05-15] MEDS ORDERED: DEXAMETHASONE SOD INJ 4 MG/ML VIAL ONE ×2 (18:14)
[2023-05-15] MEDS ORDERED: ONDANSETRON INJ 2 MG/ML 2 ML VIAL ONE (18:14)
[2023-05-15] MEDS ORDERED: LIDOCAINE 2% 2 ML VIAL/AMP(20MG/ML) INFIL ONE (18:15)
[2023-05-15] MEDS ORDERED: PROPOFOL IV EMULSION 10 MG/ML 20 ML VIAL IV ONE (18:15)
[2023-05-15] MEDS ORDERED: SUGAMMADEX SODIUM 200 MG/2 ML VIAL IV ONE (18:15)
[2023-05-15] MEDS ORDERED: ROCURONIUM BROMIDE 10 MG/ML 5 ML VIAL IV ONE ×4 (18:15)
[2023-05-15] MEDS ORDERED: CHLORHEXIDINE GLUCONATE 0.12% 480 ML MT ONE (18:27)
--- NOTE | 2023-05-15 19:11 | Operative Report ---
PG Post Operative Report Pre & Post Diagnosis Operation Date: 05/15/23 18:30 Pre-Op Diagnosis: (1) Abscess of pulp of tooth (2) Facial infection (3) Swollen gums Post-Op Diagnosis: (1) Abscess of pulp of tooth (2) Facial infection (3) Swollen gums I identified the patient and participated in the time-out.: Yes Procedure Operation Date: 05/15/23 18:30 Actual Procedures p fractured infected/abscessed # 5 (Right) - Estevan Munoz, BORA Surgeon Estevan Munoz, BORA Meat Cutting Teacher none Estimated Blood Loss 5 Findings Consistent with Post-Op Diagnosis fractured and abscessed # 5 Specimens C&S Drains none Anesthesia Type General Complications none Indications infected # 5 painful to percussion very tender soft tissue Description of Procedure Pre-op= grossly fractured and infected # 5 I&D of vestibule infection upper right CPT 82094 Extraction # 5 D7210 ICD 10 cracked tooth K03.81 Facial infection L08.9/ K12.2 Once cleared for surgery general anesthesia was achieved, the eyes were protected by the anesthesia dept criteria.. A time out was take for patient ID, antibiotics, equipment and position verification once all agreed the procedure began. Local anesthesia was given into each area using Marcaine with a vasoconstrictor ( 1.8 ml per site). A throat pack was placed after the oral cavity was irrigated with saline. Once a surgical level of anesthesia was obtained and the local anesthesia was given time for the blocks the surgery was started. I turned my attention to the upper wisdom teeth first. Upper # 5 D7210 surgical extraction and drainage of vestibule infection upper right CPT 96367 An Incision was made from # 3-6. The full thickness flap was reflected. This allowed the drainage of the infection which was cultured . I irrigated the flap and palpated the site to express further drainage from the vestibular space. I now started the bone removal with a rongeur to get to the fractured tooth/root. The Root/ tooth was visualized, it was close to the sinus. Once I started to move the tooth more pus was expressed from the soft tissue and the vestibular swelling. The tooth was fractured to the bone level and the tissue was very friable. Now using a dental forceps and an 81 elevator I was able to remove the tooth. I curetted the socket of all infected material. Bony margins were trimmed, smoothed and sutured closed with a 2-0 chromic x 2. There was no sinus involvement. Juan M has very poor oral care and advanced periodontal issues Many teeth are fractured and decayed. I inspected the sites to insure all bleeding was controlled. I removed the throat pack and suctioned the throat. A gauze pressure dressings were placed. All instrument and sponge count was correct. the patient was allowed to awake from the anesthesia. Once full awake the anesthesia tube was removed and the patient was taken to the recovery room with all vital sign stable. The patient tolerated the surgery very well. I will follow the patient in my office, Rx and instructions will be given upon discharge. I attest to the content of the Intraoperative Record and any orders documented therein. Any exceptions are noted below.
[2023-05-15] MEDS ORDERED: ACETAMINOPHEN 325 MG TAB PO PRN (19:59)
[2023-05-15] MEDS ORDERED: ACETAMINOPHEN 1,000 MG/100 ML VIAL IV STA (20:01)
--- NOTE | 2023-05-15 20:17 | Anesthesiology Progress Note ---
Date of Service May 15, 2023 Anesthesia Post Procedure Vital Signs Vital Signs: Temp Pulse Pulse Pulse Resp BP Pulse Ox 05/15/23 20:12 70 20 191/82 H 97 05/15/23 19:45 97.3 F L 65 18 199/89 H 97 05/15/23 19:40 64 16 179/88 H 95 05/15/23 19:30 97.5 F L 65 16 186/92 H 95 05/15/23 19:20 69 17 185/73 H 95 05/15/23 19:10 79 12 165/78 H 96 05/15/23 19:00 97.3 F L 73 11 L 157/59 H 97 05/15/23 17:45 97.9 F 72 20 189/97 H 100 05/15/23 15:44 98.1 F 63 18 171/80 H 98 05/15/23 15:22 67 05/15/23 11:20 98.4 F 61 18 172/80 H 96 05/15/23 08:00 05/15/23 08:00 66 05/15/23 08:12 98.2 F 60 18 171/81 H 96 05/15/23 03:49 97.9 F 67 18 172/80 H 96 05/14/23 23:00 69 05/15/23 01:43 69 05/14/23 22:41 97.7 F 67 18 185/94 H 98 O2 Del Method O2 Flow Rate 05/15/23 20:12 Room Air 05/15/23 19:45 Room Air 05/15/23 19:40 Room Air 05/15/23 19:30 Room Air 05/15/23 19:20 Room Air 05/15/23 19:10 Oxymask 4 05/15/23 19:00 Oxymask 4 05/15/23 17:45 Room Air 05/15/23 15:44 Room Air 05/15/23 15:22 05/15/23 11:20 Room Air 05/15/23 08:00 Room Air 05/15/23 08:00 05/15/23 08:12 Room Air 05/15/23 03:49 Room Air 05/14/23 23:00 05/15/23 01:43 05/14/23 22:41 Room Air Transfer of Care Handoff Completed per policy Notes Mental Status: alert / awake / arousable and participated in evaluation Patient Amnestic to Procedure: Yes Nausea / Vomiting: adequately controlled Pain: adequately controlled Airway Patency, RR, SpO2: stable & adequate BP & HR: stable & adequate Hydration State: stable & adequate Anesthetic Complications: no major complications apparent and Pt Satisfied with anesthetic care
[2023-05-15] MEDS ORDERED: amLODIPine BESYLATE 5 MG TAB PO ONE (22:19)
[2023-05-16 06:14] LABS: Hematocrit (blood only) 34.9 % (42.0-52.0); Hemoglobin 12.5 g/dl (14.0-18.0); Mean Corpuscular Hemoglobin 33.8 pg (25.0-34.0); Mean Corpuscular Hgb Conc 35.8 g/dL (32.0-36.0); Mean Corpuscular Volume 94.3 fL (80.0-100.0); Mean Platelet Volume 10.9 fL (9.4-12.4); Platelet Count 136 K/uL (130-400); RDW Coefficient of Variation 12.4 % (11.5-14.5); RDW Standard Deviation 42.8 fL (36.4-46.3)
[2023-05-16 06:34] LABS: BUN Creatinine Ratio 30.6 (10-20); Calcium 8.9 mg/dl (8.6-10.3); Creatinine Clr Calc Pharmacy 72.1 ml/min; Est GFR (African American) 91.4 ml/min; Est GFR (Non-African American) 78.9 ml/min; Magnesium 1.7 mg/dl (1.7-2.4); Potassium 4.2 mmol/L (3.5-5.1)
[2023-05-16] MEDS ORDERED: VANCOMYCIN LEVEL ONE (07:30)
--- NOTE | 2023-05-16 08:07 | Hospitalist Progress Note ---
Date of Service May 16, 2023 Assessment & Plan (1) Adrenal insufficiency: Plan: 67yo Male with PMH adrenal insufficiency, HTN here for fall weakness. Concern Sepsis, strep no identified in 2/4 blood cx, esr 88 -WBC 16.19 procal 7.3 lactate 2.4 all serological parameters have improved with antibiotic treatment -In ED given Rocephin Vancomycin vanc dosage only partially given, canceled given low CrCl Trans thoracic Echo without vegetations - periodontal abscess confirmed on CT blood cultures are alpha And gamma strep, continues on Ceftriaxone, s/p OR 05/15/23 periodontal drainage of abscess, blood cultures results were too late to confer with infectious disease on 712 will likely need infectious disease consult for duration of treatment Adrenal Crisis -given sodium 129 K 5.2 concern adrenal crisis - transition from home prednisone hydrocortisone -ordered hydrocortisone 100mg IV for stress dosing on presentation transition to oral Hypomagnesia -replete RUCHI, resolved with CKD 3 Elevated Trop -trop 46.2 no significant trend consider demand ischemia HTN -will start amlodipine Code Status -patient describes DNR/DNI, would like son Jeremias to make decisions if he is unable -on exam there is some suspicion of depressed mood Code Status: DNR/DNI DVT PPX: heparin (2) Sepsis: (3) RUCHI (acute kidney injury): (4) Acute hyponatremia: (5) Hypomagnesemia: (6) Acute hyperkalemia: (7) UTI (urinary tract infection): Admission and Anticipated Discharge Date Admission Date: May 12, 2023 Subjective Patient states he feels better every day that this is likely combination of treating his infection and sepsis from alpha and gamma strep peridental infection and also having him on hydrocortisone for adrenal replacement. Physical Exam Physical Exam: patient awake alert appropriate. right upper molar Site is intact without bleeding and sutured Cardiac exam is regular without murmurs lungs are clear without wheezes or crackles abdomen is soft there is no right upper quadrant or left lower quadrant tenderness guarding or rebound normal active bowel sounds neurologically he is awake alert appropriate oriented x3 Results & Data Results & Data Vital Signs (Past 12 Hours) Vital Signs Temp Pulse Resp BP Pulse Ox O2 Del Method 05/16/23 03:36 97.5 F L 56 L 20 164/75 H 97 Room Air 05/15/23 23:31 97.9 F 70 20 175/78 H 96 Room Air 05/15/23 22:18 97.9 F 67 20 194/89 H 97 Room Air 05/15/23 21:00 60 189/91 H 94 Room Air 05/15/23 20:12 70 20 191/82 H 97 Room Air Laboratory Results reviewed CBC reviewed chemistry Diagnostic Findings initial blood cultures have resulted in alpha and gamma strep PG Care Time/CCT Total # of Minutes Spent Total Time Spent with Patient: Total time spent is greater than 50% in coordination of care (as documented) at patient's floor/unit and/or counseling patient: Coding Level of Care Code 10636 SUB INP/OBS CARE 2/35MIN Diagnoses Adrenal insufficiency E27.40 Sepsis A41.9 RUCHI (acute kidney injury) N17.9 Acute hyponatremia E87.1 Hypomagnesemia E83.42 Acute hyperkalemia E87.5 UTI (urinary tract infection) N39.0
[2023-05-16] MEDS: amLODIPine BESYLATE 5 MG TAB PO SCH (08:41)
[2023-05-16] MEDS: HYDROCORTISONE 10 MG TAB PO SCH ×2 (08:42→14:09)
[2023-05-16] MEDS: NICOTINE 21 MG/24 HR TDSY TD SCH (08:43)
[2023-05-16] MEDS: cefTRIAXone SODIUM 2,000 MG in DEXTROSE 5% 50 ML IV SCH (08:47)
--- NOTE | 2023-05-16 09:54 | Oral/Maxillofacial Progress Nt ---
Date of Service May 16, 2023 Assessment & Plan Admission and Anticipated Discharge Date Admission Date: May 12, 2023 Subjective POST OP NOTE at 18 hours The patient did very well post operatively, healing looks to be going very well at this time No pain and no swelling as expected. Tissue tone =healthy normal tissue No sinus or nerve complications noted Excellent ROM Sutures in place no bleeding Juan M told me he has no pain and can now touch his teeth and face w/o pain Looks like this tooth did cause him more pain and discomfort than he thought?! RTC as needed Overall: Excellent healing from recent oral surgery No follow up needed I did give him my card if needed. Results & Data Vital Signs (Past 12 Hours) Vital Signs Temp Pulse Pulse Resp BP Pulse Ox O2 Del Method 05/16/23 08:02 36.3 C L 57 L 16 146/75 H 98 Room Air 05/16/23 03:36 36.4 C L 56 L 20 164/75 H 97 Room Air 05/15/23 23:31 36.6 C 70 20 175/78 H 96 Room Air 05/15/23 22:18 36.6 C 67 20 194/89 H 97 Room Air PG Care Time/CCT Total # of Minutes Spent Total Time Spent with Patient: Total time spent is greater than 50% in coordination of care (as documented) at patient's floor/unit and/or counseling patient: Coding Level of Care Code None Diagnoses
[2023-05-17 06:26] LABS: Hematocrit (blood only) 35.2 % (42.0-52.0); Hemoglobin 12.5 g/dl (14.0-18.0); Mean Corpuscular Hemoglobin 33.5 pg (25.0-34.0); Mean Corpuscular Hgb Conc 35.5 g/dL (32.0-36.0); Mean Corpuscular Volume 94.4 fL (80.0-100.0); Mean Platelet Volume 11.1 fL (9.4-12.4); Platelet Count 145 K/uL (130-400); RDW Coefficient of Variation 12.5 % (11.5-14.5); RDW Standard Deviation 42.9 fL (36.4-46.3); Red Blood Count 3.73 M/uL (4.70-6.10); White Blood Count 12.45 K/ul (4.8-10.8)
[2023-05-17 06:48] LABS: Calcium 8.9 mg/dl (8.6-10.3); Creatinine Clr Calc Pharmacy 70.7 ml/min; Est GFR (African American) 89.2 ml/min; Potassium 3.7 mmol/L (3.5-5.1)
--- NOTE | 2023-05-17 07:35 | Hospitalist Progress Note ---
Date of Service May 17, 2023 Assessment & Plan (1) Adrenal insufficiency: Plan: 67yo Male with PMH adrenal insufficiency, HTN here for fall weakness. Concern Sepsis, strep no identified in 2/4 blood cx, esr 88 -WBC 16.19 procal 7.3 lactate 2.4 all serological parameters have improved with antibiotic treatment -In ED given Rocephin Vancomycin vanc dosage only partially given, canceled given low CrCl Trans thoracic Echo without vegetations - periodontal abscess confirmed on CT blood cultures are alpha And gamma strep, continues on Ceftriaxone, s/p OR 05/15/23 periodontal drainage of abscess, blood cultures results were too late to confer with infectious disease on 712 will likely need infectious disease consult for duration of treatment Adrenal Crisis -given sodium 129 K 5.2 concern adrenal crisis - transition from home prednisone hydrocortisone -ordered hydrocortisone 100mg IV for stress dosing on presentation transition to oral Hypomagnesia -replete RUCHI, resolved with CKD 3 Elevated Trop -trop 46.2 no significant trend consider demand ischemia HTN -will start amlodipine Code Status -patient describes DNR/DNI, would like son Jeremias to make decisions if he is unable -on exam there is some suspicion of depressed mood Code Status: DNR/DNI DVT PPX: heparin (2) Sepsis: (3) RUCHI (acute kidney injury): (4) Acute hyponatremia: (5) Hypomagnesemia: (6) Acute hyperkalemia: (7) UTI (urinary tract infection): Admission and Anticipated Discharge Date Admission Date: May 12, 2023 Results & Data Results & Data Vital Signs (Past 12 Hours) Vital Signs Temp Pulse Pulse Resp BP Pulse Ox O2 Del Method 05/17/23 07:33 57 L 05/17/23 02:53 36.2 C L 65 18 117/64 98 Room Air 05/16/23 22:50 36.6 C 64 18 173/81 H 96 Room Air 05/16/23 20:00 36.4 C L 72 18 171/78 H 97 Room Air PG Care Time/CCT Total # of Minutes Spent Total Time Spent with Patient: Total time spent is greater than 50% in coordination of care (as documented) at patient's floor/unit and/or counseling patient: Coding Diagnoses Adrenal insufficiency E27.40 Sepsis A41.9 RUCHI (acute kidney injury) N17.9 Acute hyponatremia E87.1 Hypomagnesemia E83.42 Acute hyperkalemia E87.5 UTI (urinary tract infection) N39.0
[2023-05-17] MEDS: NICOTINE 21 MG/24 HR TDSY TD SCH (08:05)
[2023-05-17] MEDS: HYDROCORTISONE 10 MG TAB PO SCH (08:07)
[2023-05-17] MEDS: amLODIPine BESYLATE 5 MG TAB PO SCH (08:08)
[2023-05-17] MEDS: cefTRIAXone SODIUM 2,000 MG in DEXTROSE 5% 50 ML IV SCH (09:10)
--- NOTE | 2023-05-17 10:07 | Infectious Disease Consult ---
Date of Consultation May 17, 2023 Assessment & Plan (1) Abscess of pulp of tooth: (2) Streptococcal bacteremia: Plan 67 yo M with history of adrenal insufficiency, HTN who presented on 05/12 with fall, weakness x 2 days. On presentation, he was afebrile, HR 109. Labs showed WBC 16.2, Cr 2.78, lactate 2.9, procalcitonin 7.3. UA with 5-10 WBCs. MRSA nares neg, COVID-19/flu/RSV negative. CXR without acute process. Brain MRI without acute abnormalities. MRI lumbar spine without infectious findings. He was started on vanc, ceftriaxone. CT face showed a large periapical lucency involving R maxillary premolar, foci of gas within and superficial to this likely representing infection, and likely mild overlying cellulitis, no abscess. Admission BCx grew Strep in 2/4 bottles--alpha hemolytic and gamma hemolytic Strep, not Strep pneumo or Enterococcus. Biofire panel negative for GAS, GBS, or Strep pneumo. Repeat BCx from 05/14 are NGTD. TTE without vegetation. OMFS took pt to OR on 05/15 for I&D of abscess of pulp of tooth. Drainage of the infection was sent for culture, which is pending. Pt improving on ceftriaxone and would like to discharge. 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 Consultation Information This patient recommendation is based on a telemedicine consult request which was completed asynchronously through chart review and information provided by the primary physician. The patient was not seen or examined today. The evaluation is consultative in nature and all patient care and treatment decisions can either be accepted or rejected by the patient's primary hospital-based treating physi treva using their own independent medical judgment for their patient. Kitchen Assistant contact information: Please call [facility] . (Phone Number For Physician Use Only) Time Spent Reviewing Chart: 31+ minutes History of Present Illness Reason for Consultation: Periodontal abscess, bacteremia Attending Physician: Lisa Grady DO History of Present Illness 67 yo M with history of adrenal insufficiency, HTN who presented on 05/12 with fall, weakness x 2 days. On presentation, he was afebrile, HR 109. Labs showed WBC 16.2, Cr 2.78, lactate 2.9, procalcitonin 7.3. UA with 5-10 WBCs. MRSA nares neg, COVID-19/flu/RSV negative. CXR without acute process. Brain MRI without acute abnormalities. MRI lumbar spine without infectious findings. He was s tarted on vanc, ceftriaxone. CT face showed a large periapical lucency involving R maxillary premolar, foci of gas within and superficial to this likely representing infection, and likely mild overlying cellulitis, no abscess. Admission BCx grew Strep in 2/4 bottles--alpha hemolytic and gamma hemolytic Strep, not Strep pneumo or Enterococcus. Biofire panel negative for GAS, GBS, or Strep pneumo. Repeat BCx from 05/14 are NGTD. TTE without vegetation. OMFS took pt to OR on 05/15 for I&D of abscess of pulp of tooth. Drainage of the infection was sent for culture. Continues on ceftriaxone. Pt feeling much improved and would like to discharge. Allergies Allergy/AdvReac Type Severity Reaction Status Date / Time Penicillins Allergy Unknown CHILDHOOD--REQUIRED Verified 05/12/23 20:51 HOSPITALIZATION Home Medications Medication Instructions Recorded Confirmed Type Unknown Blood Pressure Med 1 tab PO DAILY 04/21/21 05/12/23 History prednisone 1 mg tablet See Rx Instructions .Route .COMPLEX 04/21/21 05/12/23 History Patient History Surgical History (Updated 05/16/23 @ 15:27 by Jen Ignacio RN) Hx of oral surgery (05/15/23) fractured infected/abscessed # 5 (Right) - Estevan Munoz, BORA Social History Smoking Status: Never smoker Second Hand Exposure: No; Do You Dip or Chew Tobacco: Yes (1 can/3 days); Hx Alcohol Use: Yes Alcohol type: hard liquor Hx Substance Use: No Preferred Language: Estonian Communication Ability: Effective Commercial Photographer Required: No Beliefs That Will Affect Care: None Current Living Situation: Family Current Living Situation Comment: lives with Son Feels Safe at Home: Yes Safety Concerns: Feels Safe At This Time Assistive Devices: None Review of System pt not seen Physical Exam Physical Exam: pt not seen Results & Data Vital Signs (Past 12 Hours) Vital Signs Temp Pulse Pulse Resp BP Pulse Ox O2 Del Method 05/17/23 07:10 36.4 C L 64 18 174/96 H 96 Room Air 05/17/23 07:33 57 L 05/17/23 02:53 36.2 C L 65 18 117/64 98 Room Air 05/16/23 22:50 36.6 C 64 18 173/81 H 96 Room Air Laboratory Results Short CBC 05/17/23 Range/Units 05:53 WBC 12.45 H (4.8-10.8) K/ul Hgb 12.5 L (14.0-18.0) g/dl Hct 35.2 L (42.0-52.0) % Plt Count 145 (130-400) K/uL BMP 05/17/23 05:53 Sodium 135 L Potassium 3.7 Chloride 103 Carbon Dioxide 22 BUN 38 H Creatinine 1.00 Glucose 112 H Calcium 8.[address] 05/14/23 13:09 CT SCAN OF THE FACIAL BONES WITHOUT IV CONTRAST CLINICAL HISTORY: Periodontal disease. Possible abscess. COMPARISON STUDY: No priors. TECHNIQUE: High-resolution CT scan of the facial bones is performed. Images are reviewed in the axial, sagittal, and coronal planes. IV contrast was not administered for this examination. Note that the examination is significantly suboptimal without IV contrast. A dose lowering technique was utilized adhering to the principles of ALARA. FINDINGS: The skeletal structures are well mineralized. There is no evidence of facial bone fracture. The bony orbits are intact and the orbital contents are within normal limits. The zygomatic arches, nasal bones, and pterygoid plates are preserved. The maxilla and mandible are intact. There are no layering blood products within the paranasal sinuses. There is a left mastoid effusion. The right mastoid air cells are well pneumatized. The visualized calvarium and upper cervical spine are maintained. Partially imaged brain parenchyma is within normal limits noting age-related involutional change. Evaluation of the oral cavity is degraded by streak artifact from dental amalgam. Numerous dental caries are identified. There is a large periapical lucency identified involving the right maxillary premolar seen on axial image #261. There are small foci of gas within an overlying this periapical lucency. There is minimal overlying soft tissue infiltration which likely represents cellulitis. No organized fluid collection is seen to suggest abscess. No additional periapical lucencies are seen. There is atherosclerotic calcification of the carotid bulbs. IMPRESSION: 1. There is a large periapical lucency involving a right maxillary premolar. There are foci of gas within and superficial to this periapical lucency, likely representing infection. There is likely mild mild overlying cellulitis. Follow- up with dentistry is recommended. 2. No organized fluid collection is seen to suggest abscess on this unenhanced examination. 3. Numerous additional dental caries are noted. ACT 112: Negative or not required by law. Electronically signed by: Rashi Sutton M.D. 05/14/2023 5:38 PM Medications Administered Current Inpatient Medications Acetaminophen (Acetaminophen 325 Mg Tab) 650 mg PO Q4H PRN PRN Reason: pain Stop: 06/14/23 19:58 Amlodipine Besylate (Amlodipine Besylate 5 Mg Tab) 5 mg PO QAM [facility] Stop: 06/14/23 08:59 Last Admin: 05/17/23 08:08 Dose: 5 mg Heparin Sodium (Porcine) (Heparin Sod 5,000 Unit/0.5 Ml Vial) 5,000 units SQ Q12 [facility] Stop: 06/12/23 08:59 Last Admin: 05/15/23 08:50 Dose: 5,000 units Hydrocortisone (Hydrocortisone 10 Mg Tab) 15 mg PO QAM [facility] Stop: 06/14/23 08:59 Last Admin: 05/17/23 08:07 Dose: 15 mg Hydrocortisone (Hydrocortisone 10 Mg Tab) 10 mg PO Q24H [facility] Stop: 06/14/23 12:59 Last Admin: 05/16/23 14:09 Dose: 10 mg Ceftriaxone Sodium 2,000 mg/ (Dextrose) 70 mls @ 100 mls/hr IV Q24H [facility]; Protocol Stop: 05/23/23 09:29 Last Infusion: 05/17/23 09:50 Dose: Infused Melatonin (Melatonin 3 Mg Tab) 3 mg PO HS PRN PRN Reason: Sleep Stop: 06/13/23 19:10 Miscellaneous (Remove Nicoderm Patch) 1 each N/A DAILY@0859 [facility] Stop: 06/13/23 08:58 Last Admin: 05/17/23 08:05 Dose: 1 each Nicotine (Nicotine 21 Mg/24 Hr Tdsy) 21 mg TD QAM [facility] Stop: 06/12/23 14:14 Last Admin: 05/17/23 08:05 Dose: 21 mg
--- NOTE | 2023-05-17 10:25 | Discharge Summary ---
Discharge Summary Date of Service May 17, 2023 Admission HPI Per Admitting Provider 67yo Male with PMH adrenal insufficiency, HTN here for fall weakness. Patient states he was feeling weak over the last 2 days top weak to walk, had a difficult time getting to the bathroom. On the way back from the bathroom he fell and stayed on the floor for 5 hours, hurt both elbows catching himself on the floor. States he initially did not want to come to the hospital however son called 911. He had profuse diarrhea in hospital, denies diarrhea at home. Patient denies any fever SOB nausea pain with urination chest pain abd pain, does not feel his abd has increased distention. States his last dose of medication was this morning, was told to double up his prednisone if he felt sick so followed those instructions for his morning dose. He also uses a blood pressure medication and possibly something with calcium to keep his heart clear. At baseline patient has walking difficulties, able to ambulate in house without assistance but not outside. He lives with his son Jeremias, would like him to make decisions if patient not able to respond. When asked about his code status, patient states if his heart stops to let him go, if he has increased difficulty breathing to make him comfortable, states he is not able to do much at home anyway. Admission Exam Per Admitting Provider Constitutional: + disheveled (recently had feces cleaned from bedding, legs), cooperative and comfortable Eyes: PERRL, conjunctivae normal, anicteric sclerae ENMT: external ear and nose normal, oropharynx normal Neck: trachea midline, no thyromegaly Respiratory: normal respiratory effort, lungs clear to auscultation Cardiovascular: Rate/Rhythm: regular rate and regular rhythm Heart Sounds: + murmur (systolic) Gastrointestinal (Abdomen): Inspection/Auscultation: + abdomen distended Percussion/Palpation: abdomen soft; abdomen nontender Skin: no rashes, warm and dry Neurologic: CN's II-XI intact bilaterally Principal Dx & Hospital Course #1 = Principal Diagnosis (1) Streptococcal bacteremia: (2) Sepsis: (3) RUCHI (acute kidney injury): (4) Abscess of pulp of tooth: (5) Adrenal insufficiency: Plan 67yo Male with PMH adrenal insufficiency, HTN here for fall weakness. Concern Sepsis, strep no identified in 2/4 blood cx, ESR 88 -WBC 16.19 procal 7.3 lactate 2.4 all serological parameters have improved with antibiotic treatment -Periodontal abscess confirmed on CT, and blood cultures with alpha / gamma strep, repeat BCx negative -s/pOR 05/15/23 for periodontal drainage of abscess by Dr. Munoz -Trans thoracic Echo without vegetations -Inpatient received Rocephin and transitioned to cefuroxime/metronidazole BID to complete on 05/27 -ID consulted this admission, appreciate recommendations Adrenal Crisis -Given sodium 129 K 5.2 concern adrenal crisis -Transitioned from home prednisone hydrocortisone -Ordered hydrocortisone 100mg IV for stress dosing on presentation, transitioned back to oral home regimen Hypomagnesia -Repleted RUCHI, resolved with CKD 3 Creatinine 1.00 on day of discharge Elevated Trop -Trop 46.2 no significant trend, no anginal Sx, likely demand ischemia HTN -Cont amlodipine on discharge with PCP follow up Code Status -Patient describes DNR/DNI, would like son Jeremias to make decisions if he is unable Discharge Exam Constitutional WD/WN, vitals as above ENMT no evidence of facial swelling, no tenderness to palpation Respiratory normal respiratory effort, lungs clear to auscultation Cardiovascular RRR, no murmur, no edema Psychiatric A+Ox3, euthymic affect Updated Medication List Medication Instructions Recorded Confirmed Type Unknown Blood Pressure Med 1 tab PO DAILY 04/21/21 05/12/23 History prednisone 1 mg tablet See Rx Instructions .Route .COMPLEX 04/21/21 05/12/23 History amlodipine 5 mg tablet (Norvasc) 5 mg PO QAM 30 days #30 tabs 05/17/23 Rx cefuroxime axetil 500 mg tablet 500 mg PO BID 12 days #24 tabs 05/17/23 Rx metronidazole 500 mg tablet 500 mg PO BID 12 days #24 tabs 05/17/23 Rx Hospital Stay Data Consultations 05/12/23 22:36 ED Decision to Admit Stat 05/15/23 09:48 Consult Oromaxillofacial Surgery Routine 05/17/23 07:14 Consult Infectious Diseases Routine Procedures Performed Operation Date: 05/15/23 18:30 Actual Procedures p Complete Bony Impaction(Right) - Estevan Munoz, BOR[facility] Diagnostic Imagining Performed 05/13/23 12:55 MRI Brain [MR brain wo con] Routine MRI Lumbar Spine [MR lumbar spine wo con] Routine 05/14/23 13:09 CT face [CT facial bones wo con] Routine Pending Results Patient Have Any Pending Studies at Discharge: No Discharge Instructions Given to Patient (Per Discharging Provider) You were admitted for weakness and sepsis, due to an infection in your tooth that caused an infection in the blood. Your symptoms improved with antibiotics. We believe that we can transition you to oral antibiotics, to start tomorrow morning and continue through May 27. These were sent to your pharmacy. Please check your medication list for doses and timing of antibiotics. You should call Dr. Munoz's office for follow up of your mouth abscess. Continue your home prednisone medication. Follow up with your out of hospital doctors about this medication. You were started on amlodipine, a medication for high blood pressures. We recommend you follow up on this with your family doctor. Total Time Total Time Spent Total Time Spent (In Minutes): 40 min Coding Level of Care Code 27530 INP/OBS DISCH >30 MIN Diagnoses Streptococcal bacteremia R78.81; B95.5 Sepsis A41.9 RUCHI (acute kidney injury) N17.9 Abscess of pulp of tooth K04.01 Adrenal insufficiency E27.40
[2023-05-17] MEDS ORDERED: CALCIUM CARBONATE 500 MG CHEWABLE TAB ONE (11:37)
[2023-05-17 15:42] LABS: A calco-baum cmplx NotReported Not Detected (NotDetected); Bact fragilis Not Reported Not Detected (NotDetected); C auris Not Reported Not Detected (NotDetected); Calbicans Not Reported Not Detected (NotDetected); Candida glabrata Not Reported Not Detected (NotDetected); Candida krusei Not Reported Not Detected (NotDetected); Cneoformans/gatti Not Reported Not Detected (NotDetected); Cparapsilosis Not Reported Not Detected (NotDetected); Ctropicalis Not Reported Not Detected (NotDetected); E cloacae compx Not Reported Not Detected (NotDetected); Efaecalis Not Reported Not Detected (NotDetected); Efaecium Not Reported Not Detected (NotDetected); Enterobacterales Not Reported Not Detected (NotDetected); Escherichia coli Not Reported Not Detected (NotDetected); H influenzae Not Reported Not Detected (NotDetected); K aerogenes Not Reported Not Detected (NotDetected); Koxytoca Not Reported Not Detected (NotDetected); Kpneumoniae grp Not Reported Not Detected (NotDetected); Lmonocyt Not Reported Not Detected (NotDetected); N meningitidis Not Reported Not Detected (NotDetected); P aeruginosa Not Reported Not Detected (NotDetected); Proteus spp Not Reported Not Detected (NotDetected); Salmonella spp Not Reported Not Detected (NotDetected); Smarcescens Not Reported Not Detected (NotDetected); Staph lugdunensis Not Reported Not Detected (NotDetected); Staph spp. Not Reported Not Detected (NotDetected); Staphaureus Not Reported Not Detected (NotDetected); Staphepi Not Reported Not Detected (NotDetected); Stenmaltophilia Not Reported Not Detected (NotDetected); Strep agal(GrpB) Not Reported Not Detected (NotDetected); Strep pneum Not Reported Not Detected (NotDetected); Strep pyog (GrpA) Not Reported Not Detected (NotDetected); Strep spp Not Reported Not Detected (NotDetected)
== END 2023-05-17 12:02 | disposition home health service (06) | DRG 853 ==
LOC: ED 19:51 → 4W 22:59 → SUATTDRO 22:59 → 4W 23:49